=== PATIENT | female | born 1985 | race African-American/Black ===

== ENCOUNTER → 2016-03-25 | Outpatient (CLI) | payer MEDICARE, OTHER ==
[2016-03-25 10:13] LABS: Basophils % (A) 0 %; CHCM 31.4; Eosinophils % (A) 1 %; HCT 40.4 % (34.0-46.0); HGB 12.3 gm/dL (11.4-16.0); Hypochromasia Slight; Luc # (Auto) 0.07; Luc % (Auto) 1; Lymphocytes # (A) 1.5 k/uL (1.0-4.8); Lymphocytes % (A) 24 %; MCH 28.4 pg (25.0-35.0); MCHC 30.5 g/dL (31.0-37.0); MCV 93.1 fL (80.0-100.0); Mean Platelet Volume 7.5; Monocytes # (A) 0.3 k/uL (0-1.0); Monocytes % (A) 4 %; Neutrophils # (A) 4.5 k/uL (1.3-7.7); Neutrophils % (A) 70 %; RBC 4.34 m/uL (3.80-5.40); RDW 14.8 % (11.5-15.5); WBC 6.4 k/uL (3.8-10.6); WBC (Perox) 6.31
[2016-03-25 10:41] LABS: ALT 37 U/L (9-52); AST 26 U/L (14-36); Alkaline Phosphatase 74 U/L (38-126); Anion Gap 13 mmol/L; Blood Urea Nitrogen 5 mg/dL (7-17); Calcium 9.4 mg/dL (8.4-10.2); Carbon Dioxide 24 mmol/L (22-30); Chloride 104 mmol/L (98-107); Cholesterol 149 mg/dL (<200); Glucose 89 mg/dL (74-99); HDL Cholesterol 96 mg/dL (40-60); Non-African American GFR(MDRD) >60 (>60 ml/min/1.73 sqM); Potassium 4.3 mmol/L (3.5-5.1); Sodium 141 mmol/L (137-145); Total Bilirubin 0.4 mg/dL (0.2-1.3); Total Protein 7.5 g/dL (6.3-8.2); Triglycerides 80 mg/dL (<150)
[2016-03-25 12:20] LABS: Hemoglobin A1C 5.4 % (4.2-6.1)
== END | disposition home or self-care (01) ==
LOC: LABWHC1 09:29 → EEVIPCON 09:29
PROVIDERS: ATTEND Family Medicine
DX: F31.2 Bipolar disorder, current episode manic severe with psychotic features (principal)
CPT/HCPCS: 36415; 80053; 80061; 83036; 84439; 84443; 85025

== ENCOUNTER 2016-04-01 07:04 | Emergency (ER) | payer MEDICARE, OTHER ==
[2016-04-01 07:14] VITALS: BP 132/88; PULSE 70; RESP 18; TEMP 97.6
--- NOTE | 2016-04-01 08:00 | ED ---
General Adult HPI - General Chief complaint: Back Pain/Injury Stated complaint: Back Pain Time Seen by Provider: 04/01/16 07:10 Source: patient, RN notes reviewed Mode of arrival: ambulatory Limitations: no limitations - History of Present Illness Initial comments: This is a 30-year-old female who presents to the emergency department complaining of lower back pain. Patient denies any trauma to the back she says she twisted and strained his little and she was like a muscle relaxant. Patient denies any numbness weakness. Patient denies any direct blow or trauma to the area. Patient denies any abdominal pain. Patient denies any recent fever or chills. Patient denies any difficulty urinating or having urinary incontinence. Patient denies any other problems at this time. Patient has full range of motion of her back just is a little tight she states. - Related Data Previous Rx's Medication Instructions Recorded Cyclobenzaprine [Flexeril] 10 mg PO TID #5 tab 04/01/16 Ibuprofen [Motrin] 600 mg PO Q6HR PRN #20 tab 04/01/16 Allergies Allergy/AdvReac Type Severity Reaction Status Date / Time naproxen [From Naprosyn] Allergy Rash/Hives Verified 04/01/16 07:41 Review of Systems ROS Statement: Those systems with pertinent positive or pertinent negative responses have been documented in the HPI. ROS Other: All systems not noted in ROS Statement are negative. Past Medical History Past Medical History: No Reported History Additional Past Medical History / Comment(s): chronic back pain History of Any Multi-Drug Resistant Organisms: None Reported Past Surgical History: Section Past Psychological History: No Psychological Hx Reported Smoking Status: Current every day smoker Past Alcohol Use History: None Reported Past Drug Use History: None Reported General Exam - General Exam Comments Initial Comments: GENERAL Patient is well-developed and well-nourished. Patient is in mild distress. EYES Patient's pupils are equal and round. Extraocular motion is intact SKIN Unremarkable NEURO The patient is alert and oriented 3 PYSCH Patient has normal interpersonal interactions. MUSCULOSKELETAL The paraspinous muscles in the lower back are slightly tender to palpation. Patient has full range motion back pain patient has no numbness or weakness. Limitations: no limitations Course Vital Signs 04/01/16 07:10 Temperature 97.6 F Pulse Rate 70 Respiratory 18 Rate Blood Pressure 132/88 O2 Sat by Pulse 100 Oximetry Disposition Clinical Impression: Strain of lumbar region Disposition: HOME SELF-CARE Condition: Good Instructions: Low Back Strain (ED) Prescriptions: Cyclobenzaprine [Flexeril] 10 mg PO TID #5 tab Ibuprofen [Motrin] 600 mg PO Q6HR PRN #20 tab PRN Reason: For pain Referrals: Arnol Jean MD [Primary Care Provider] - 1-2 days Time of Disposition: 08:00
== END 2016-04-01 08:15 | disposition home or self-care (01) ==
LOC: EC 07:04
DX: S39.012A Strain of muscle, fascia and tendon of lower back, initial encounter (principal); F17.200 Nicotine dependence, unspecified, uncomplicated; Z88.8 Allergy status to other drugs, medicaments and biological substances; X58.XXXA Exposure to other specified factors, initial encounter
CPT/HCPCS: 99283

== ENCOUNTER 2016-08-06 10:50 | Emergency (ER) | payer MEDICARE, OTHER ==
--- NOTE | 2016-08-06 12:05 | ED ---
General Adult HPI - General Chief complaint: Skin/Abscess/Foreign Body Stated complaint: rash Time Seen by Provider: 08/06/16 11:39 Source: patient, RN notes reviewed, old records reviewed Mode of arrival: ambulatory Limitations: no limitations - History of Present Illness Initial comments: Is a 22-year-old female the ER for evaluation of rash. Patient has rash in the right side of her neck. Patient states at times it itches at times can be type of burning pain. Patient has no modifying factors for treatment, has not had any lotions, etc. any medications. Patient has no sick contacts no fevers no other complaints. No rash noted anywhere else. Rash is just on right side of neck down into shoulder area. Patient denies any systemic symptoms such as fever weakness nausea vomiting or malaise - Related Data Home Medications Medication Instructions Recorded Confirmed No Known Home Medications [No 08/06/16 08/06/16 Known Home Medications] Allergies Allergy/AdvReac Type Severity Reaction Status Date / Time naproxen [From Naprosyn] Allergy Rash/Hives Verified 08/06/16 11:11 Review of Systems ROS Statement: Those systems with pertinent positive or pertinent negative responses have been documented in the HPI. ROS Other: All systems not noted in ROS Statement are negative. Past Medical History Past Medical History: No Reported History Additional Past Medical History / Comment(s): chronic back pain History of Any Multi-Drug Resistant Organisms: None Reported Past Surgical History: Section Past Psychological History: No Psychological Hx Reported Smoking Status: Current every day smoker Past Alcohol Use History: None Reported Past Drug Use History: None Reported General Exam - General Exam Comments Initial Comments: Dermatitis right lateral neck Limitations: no limitations General appearance: alert, in no apparent distress Head exam: Present: atraumatic, normocephalic, normal inspection Eye exam: Present: normal appearance, PERRL, EOMI. Absent: scleral icterus, conjunctival injection, periorbital swelling ENT exam: Present: normal exam, mucous membranes moist Neck exam: Present: normal inspection. Absent: tenderness, meningismus, lymphadenopathy Respiratory exam: Present: normal lung sounds bilaterally. Absent: respiratory distress, wheezes, rales, rhonchi, stridor Cardiovascular Exam: Present: regular rate, normal rhythm, normal heart sounds. Absent: systolic murmur, diastolic murmur, rubs, gallop, clicks GI/Abdominal exam: Present: soft, normal bowel sounds. Absent: distended, tenderness, guarding, rebound, rigid Extremities exam: Present: normal inspection, full ROM, normal capillary refill. Absent: tenderness, pedal edema, joint swelling, calf tenderness Back exam: Present: normal inspection Neurological exam: Present: alert, oriented X3, CN II-XII intact Psychiatric exam: Present: normal affect, normal mood Skin exam: Present: warm, dry, intact, normal color. Absent: rash Course Vital Signs 08/06/16 11:08 Temperature 99.2 F Pulse Rate 105 H Respiratory 18 Rate Blood Pressure 144/97 O2 Sat by Pulse 96 Oximetry - Reevaluation(s) Reevaluation #1: 08/06/16 12:03 Patient given steroid cream here in the emergency room, Medical Decision Making - Medical Decision Making 22 female ER for evaluation of right neck dermatitis, positive rash right side of neck, patient given steroids, steroid cream for dermatitis, can be discharged home Disposition Clinical Impression: Dermatitis Narrative: Right Neck Dermatitis Disposition: HOME SELF-CARE Condition: Good Instructions: Contact Dermatitis (ED) Referrals: Arnol Jean MD [Primary Care Provider] - 1-2 days
[2016-08-06] MEDS ORDERED: TRIAMCINOLONE ACET 0.1% OINTMENT 15 GM TUBE TOPICAL SCH (12:15)
[2016-08-06 12:23] VITALS: BP 127/93; PULSE 83; RESP 16; TEMP 98.4
== END 2016-08-06 12:33 | disposition home or self-care (01) ==
LOC: EC 10:50
DX: L30.9 Dermatitis, unspecified (principal); F17.200 Nicotine dependence, unspecified, uncomplicated; Z88.6 Allergy status to analgesic agent
CPT/HCPCS: 99283

== ENCOUNTER 2017-05-26 17:06 | Inpatient (IN) | payer MEDICARE, MEDICAID ==
--- NOTE | 2017-05-26 17:28 | ED ---
Psych HPI - General Stated Complaint: Mental Health Time Seen by Provider: 05/26/17 17:06 Source: patient, police, RN notes reviewed - History of Present Illness Initial Comments: This a 31-year-old female with a history of bipolar disorder who was brought in by police for aggressive manic behavior. Patient was noted by personnel have the smell of alcohol conjoiners on her breath the patient is thus far uncooperative with answering questions so the question of drug use or any other problems and is not easily elucidated. There is no evidence of trauma per personnel. No nausea vomiting reported. MD Complaint: altered mental status - Related Data Home Medications Medication Instructions Recorded Confirmed ARIPiprazole [Abilify] 15 mg PO HS 02/03/17 05/26/17 Allergies Allergy/AdvReac Type Severity Reaction Status Date / Time naproxen [From Naprosyn] Allergy Rash/Hives Verified 05/26/17 17:36 Review of Systems ROS Statement: Those systems with pertinent positive or pertinent negative responses have been documented in the HPI. ROS Other: All systems not noted in ROS Statement are negative. Limitations: ROS unobtainable due to patients medical condition Past Medical History Past Medical History: No Reported History Additional Past Medical History / Comment(s): chronic back pain History of Any Multi-Drug Resistant Organisms: None Reported Past Surgical History: Section Past Psychological History: No Psychological Hx Reported Smoking Status: Current every day smoker Past Alcohol Use History: None Reported Past Drug Use History: None Reported General Exam - General Exam Comments Initial Comments: Is a well-developed well-nourished awake alert agitated female with a smell of alcohol conjoiners on her breath General appearance: alert, anxious Head exam: Present: atraumatic, normocephalic, normal inspection Eye exam: Present: normal appearance, PERRL, EOMI. Absent: scleral icterus, conjunctival injection, periorbital swelling ENT exam: Present: normal exam, mucous membranes moist Neck exam: Present: normal inspection. Absent: tenderness, meningismus, lymphadenopathy Respiratory exam: Present: normal lung sounds bilaterally. Absent: respiratory distress, wheezes, rales, rhonchi, stridor Cardiovascular Exam: Present: regular rate, normal rhythm, normal heart sounds. Absent: systolic murmur, diastolic murmur, rubs, gallop, clicks GI/Abdominal exam: Present: soft, normal bowel sounds. Absent: distended, tenderness, guarding, rebound, rigid Extremities exam: Present: normal inspection, full ROM, normal capillary refill. Absent: tenderness, pedal edema, joint swelling, calf tenderness Back exam: Present: normal inspection Neurological exam: Present: alert, CN II-XII intact, normal gait (Patient was noted to walk-in with police without any difficulty.). Absent: motor sensory deficit Psychiatric exam: Present: anxious, manic Skin exam: Present: warm, dry, intact, normal color. Absent: rash Course Vital Signs 05/26/17 17:18 Temperature 99.0 F Pulse Rate 117 H Respiratory 16 Rate Blood Pressure 162/109 O2 Sat by Pulse 98 Oximetry - Reevaluation(s) Reevaluation #1: 05/26/17 17:26 The patient did require a spit mask and restraints for the protection of her and staff members Reevaluation #2: 05/26/17 20:45 I did review the petition and did fill out a clinical certification. Procedures - Restraint - Face to Face Restraint Occurrence 1 Patient's Immediate Situation: Endangers self safety, Endangers others' safety, Endangers staff safety Patient's Reaction to the Intervention: Uncooperative, Belligerent, Aggressive, Combative Patient's Medical & Behavioral Condition: Awake, Alert, Agitated Need to Continue or Terminate Restraint or Seclusion: Continue Face to Face Eval of Restraint Time: 17:27 Medical Decision Making - Medical Decision Making The patient was evaluated by psychiatric service and will be admitted for inpatient treatment of depression and agitation personality disorder. She did require intramuscular medication for sedation. - Lab Data Result diagrams: 05/26/17 17:27 Lab Results 05/26/17 05/26/17 05/26/17 Range/Units 17:21 17:27 17:27 WBC (3.8-10.6) k/uL RBC (3.80-5.40) m/uL Hgb (11.4-16.0) gm/dL Hct (34.0-46.0) % MCV (80.0-100.0) fL MCH (25.0-35.0) pg MCHC (31.0-37.0) g/dL RDW (11.5-15.5) % Plt Count (150-450) k/uL Neutrophils % % Lymphocytes % % Monocytes % % Eosinophils % % Basophils % % Neutrophils # (1.3-7.7) k/uL Lymphocytes # (1.0-4.8) k/uL Monocytes # (0-1.0) k/uL Eosinophils # (0-0.7) k/uL Basophils # (0-0.2) k/uL POC Glucose (mg/dL) 140 H (75-99) mg/dL POC Glu Winding Rack Operator ID Ewa Murphy Magnesium 1.7 (1.6-2.3) mg/dL Total Creatine Kinase 528 H (30-135) U/L CK-MB (CK-2) 0.5 (0.0-2.4) ng/mL CK-MB (CK-2) Rel Index 0.1 Lipase 115 (23-300) U/L Urine HCG, Qual (Not Detectd) Salicylates <1.0 mg/dL Urine Opiates Screen (NotDetected) Ur Oxycodone Screen (NotDetected) Urine Methadone Screen (NotDetected) Ur Propoxyphene Screen (NotDetected) Acetaminophen <10.0 ug/mL Ur Barbiturates Screen (NotDetected) U Tricyclic Antidepress (NotDetected) Ur Phencyclidine Scrn (NotDetected) Ur Amphetamines Screen (NotDetected) U Methamphetamines Scrn (NotDetected) U Benzodiazepines Scrn (NotDetected) Urine Cocaine Screen (NotDetected) U Marijuana (THC) Screen (NotDetected) Serum Alcohol 52 mg/dL 05/26/17 05/26/17 05/26/17 Range/Units 17:27 17:27 17:35 WBC 10.4 (3.8-10.6) k/uL RBC 4.40 (3.80-5.40) m/uL Hgb 12.4 (11.4-16.0) gm/dL Hct 37.9 (34.0-46.0) % MCV 86.2 (80.0-100.0) fL MCH 28.2 (25.0-35.0) pg MCHC 32.7 (31.0-37.0) g/dL RDW 15.3 (11.5-15.5) % Plt Count 563 H (150-450) k/uL Neutrophils % 67 % Lymphocytes % 26 % Monocytes % 4 % Eosinophils % 1 % Basophils % 0 % Neutrophils # 6.9 (1.3-7.7) k/uL Lymphocytes # 2.6 (1.0-4.8) k/uL Monocytes # 0.4 (0-1.0) k/uL Eosinophils # 0.1 (0-0.7) k/uL Basophils # 0.0 (0-0.2) k/uL POC Glucose (mg/dL) (75-99) mg/dL POC Glu Winding Rack Operator ID Magnesium (1.6-2.3) mg/dL Total Creatine Kinase (30-135) U/L CK-MB (CK-2) (0.0-2.4) ng/mL CK-MB (CK-2) Rel Index Lipase (23-300) U/L Urine HCG, Qual Not Detected (Not Detectd) Salicylates mg/dL Urine Opiates Screen Not Detected (NotDetected) Ur Oxycodone Screen Not Detected (NotDetected) Urine Methadone Screen Not Detected (NotDetected) Ur Propoxyphene Screen Not Detected (NotDetected) Acetaminophen ug/mL Ur Barbiturates Screen Not Detected (NotDetected) U Tricyclic Antidepress Not Detected (NotDetected) Ur Phencyclidine Scrn Not Detected (NotDetected) Ur Amphetamines Screen Not Detected (NotDetected) U Methamphetamines Scrn Not Detected (NotDetected) U Benzodiazepines Scrn Not Detected (NotDetected) Urine Cocaine Screen Not Detected (NotDetected) U Marijuana (THC) Screen Not Detected (NotDetected) Serum Alcohol mg/dL Disposition Clinical Impression: Depression, Personality disorder Disposition: TRANSFER TO PSYCH HOSP/UNIT Condition: Stable Referrals: Arnol Jean MD [Primary Care Provider] - 1-2 days
[2017-05-26 17:35] LABS: Basophils % (A) 0 %; Eosinophils # (A) 0.1 k/uL (0-0.7); Eosinophils % (A) 1 %; HCT 37.9 % (34.0-46.0); HGB 12.4 gm/dL (11.4-16.0); Lymphocytes # (A) 2.6 k/uL (1.0-4.8); Lymphocytes % (A) 26 %; MCH 28.2 pg (25.0-35.0); MCHC 32.7 g/dL (31.0-37.0); MCV 86.2 fL (80.0-100.0); Mean Platelet Volume 6.2; Monocytes # (A) 0.4 k/uL (0-1.0); Monocytes % (A) 4 %; Neutrophils # (A) 6.9 k/uL (1.3-7.7); Neutrophils % (A) 67 %; Platelet Count 563 k/uL (150-450); RDW 15.3 % (11.5-15.5); WBC 10.4 k/uL (3.8-10.6)
[2017-05-26 17:41] LABS: Glucose,Whole Blood 140 mg/dL (75-99)
[2017-05-26 17:45] LABS: Acetaminophen <10.0 ug/mL; Alcohol 52 mg/dL; Lipase 115 U/L (23-300); Magnesium 1.7 mg/dL (1.6-2.3); Salicylate <1.0 mg/dL
[2017-05-26 17:56] LABS: Amphetamine Screen,Urine Not Detected (NotDetected); Barbiturate Screen,Urine Not Detected (NotDetected); Benzodiazepines Screen,Urine Not Detected (NotDetected); Cocaine Screen,Urine Not Detected (NotDetected); Methadone Screen, Urine Not Detected (NotDetected); Opiate Screen,Urine Not Detected (NotDetected); Oxycodone Screen, Urine Not Detected (NotDetected); Phencyclidine Screen,Urine Not Detected (NotDetected); Tricyclic Antidepressant,Urine Not Detected (NotDetected); Urn Cannabinoid Scrn Not Detected (NotDetected)
[2017-05-26 18:11] LABS: Creatine Kinase MB 0.5 ng/mL (0.0-2.4)
[2017-05-26] MEDS ORDERED: LORazepam 2 MG/ML INJ IM STA ×2 (19:45→21:26)
[2017-05-26] MEDS ORDERED: ZIPRASIDONE 20 MG VIAL IM STA (19:46)
[2017-05-26] MEDS ORDERED: HALOPERIDOL LACTATE 5 MG/ML 1 ML VIAL IM STA (21:25)
[2017-05-26] MEDS ORDERED: diphenhydrAMINE 50 MG/ML 1 ML VIAL IM STA (21:26)
--- NOTE | 2017-05-26 21:28 | ED ---
Medical Decision Making - Lab Data Result diagrams: 05/26/17 17:27 Lab Results 05/26/17 05/26/17 05/26/17 Range/Units 17:21 17:27 17:27 WBC (3.8-10.6) k/uL RBC (3.80-5.40) m/uL Hgb (11.4-16.0) gm/dL Hct (34.0-46.0) % MCV (80.0-100.0) fL MCH (25.0-35.0) pg MCHC (31.0-37.0) g/dL RDW (11.5-15.5) % Plt Count (150-450) k/uL Neutrophils % % Lymphocytes % % Monocytes % % Eosinophils % % Basophils % % Neutrophils # (1.3-7.7) k/uL Lymphocytes # (1.0-4.8) k/uL Monocytes # (0-1.0) k/uL Eosinophils # (0-0.7) k/uL Basophils # (0-0.2) k/uL POC Glucose (mg/dL) 140 H (75-99) mg/dL POC Glu Driver Sales ID Ewa Murphy Magnesium 1.7 (1.6-2.3) mg/dL Total Creatine Kinase 528 H (30-135) U/L CK-MB (CK-2) 0.5 (0.0-2.4) ng/mL CK-MB (CK-2) Rel Index 0.1 Lipase 115 (23-300) U/L Urine HCG, Qual (Not Detectd) Salicylates <1.0 mg/dL Urine Opiates Screen (NotDetected) Ur Oxycodone Screen (NotDetected) Urine Methadone Screen (NotDetected) Ur Propoxyphene Screen (NotDetected) Acetaminophen <10.0 ug/mL Ur Barbiturates Screen (NotDetected) U Tricyclic Antidepress (NotDetected) Ur Phencyclidine Scrn (NotDetected) Ur Amphetamines Screen (NotDetected) U Methamphetamines Scrn (NotDetected) U Benzodiazepines Scrn (NotDetected) Urine Cocaine Screen (NotDetected) U Marijuana (THC) Screen (NotDetected) Serum Alcohol 52 mg/dL 05/26/17 05/26/17 05/26/17 Range/Units 17:27 17:27 17:35 WBC 10.4 (3.8-10.6) k/uL RBC 4.40 (3.80-5.40) m/uL Hgb 12.4 (11.4-16.0) gm/dL Hct 37.9 (34.0-46.0) % MCV 86.2 (80.0-100.0) fL MCH 28.2 (25.0-35.0) pg MCHC 32.7 (31.0-37.0) g/dL RDW 15.3 (11.5-15.5) % Plt Count 563 H (150-450) k/uL Neutrophils % 67 % Lymphocytes % 26 % Monocytes % 4 % Eosinophils % 1 % Basophils % 0 % Neutrophils # 6.9 (1.3-7.7) k/uL Lymphocytes # 2.6 (1.0-4.8) k/uL Monocytes # 0.4 (0-1.0) k/uL Eosinophils # 0.1 (0-0.7) k/uL Basophils # 0.0 (0-0.2) k/uL POC Glucose (mg/dL) (75-99) mg/dL POC Glu Driver Sales ID Magnesium (1.6-2.3) mg/dL Total Creatine Kinase (30-135) U/L CK-MB (CK-2) (0.0-2.4) ng/mL CK-MB (CK-2) Rel Index Lipase (23-300) U/L Urine HCG, Qual Not Detected (Not Detectd) Salicylates mg/dL Urine Opiates Screen Not Detected (NotDetected) Ur Oxycodone Screen Not Detected (NotDetected) Urine Methadone Screen Not Detected (NotDetected) Ur Propoxyphene Screen Not Detected (NotDetected) Acetaminophen ug/mL Ur Barbiturates Screen Not Detected (NotDetected) U Tricyclic Antidepress Not Detected (NotDetected) Ur Phencyclidine Scrn Not Detected (NotDetected) Ur Amphetamines Screen Not Detected (NotDetected) U Methamphetamines Scrn Not Detected (NotDetected) U Benzodiazepines Scrn Not Detected (NotDetected) Urine Cocaine Screen Not Detected (NotDetected) U Marijuana (THC) Screen Not Detected (NotDetected) Serum Alcohol mg/dL Disposition Clinical Impression: Depression, Personality disorder, Psychosis Disposition: TRANSFER TO PSYCH HOSP/UNIT Condition: Stable Referrals: Arnol Jean MD [Primary Care Provider] - 1-2 days
[2017-05-26] MEDS ORDERED: MAGNESIUM HYDROXIDE 2,400 MG/10 ML CUP PO PRN (23:07)
[2017-05-26] MEDS ORDERED: MAG HYDROX/AL HYDROX/SIMETH 30 ML CUP PO PRN (23:07)
[2017-05-26] MEDS ORDERED: LORazepam 2 MG/ML INJ IM PRN (23:13)
[2017-05-26] MEDS ORDERED: diphenhydrAMINE 50 MG/ML 1 ML VIAL IM PRN (23:14)
[2017-05-27 01:41] LABS: Appearance,Urine Clear (Clear); Bilirubin,Urine Negative (Negative); Blood,Urine Negative (Negative); Color,Urine Yellow; Glucose,Urine (UA) Negative (Negative); Hyaline Casts,Urine 22 /lpf (0-2); Ketones,Urine Negative (Negative); Leukocyte Esterase,Urine Negative (Negative); Mucus,Urine Moderate /hpf; Nitrite,Urine Negative (Negative); Protein,Urine 1+ (Negative); RBC,Urine 1 /hpf (0-5); Specific Gravity,Urine 1.019 (1.001-1.035); Squamous Epithelial Cell,Urine 2 /hpf (0-4); Urobilinogen,Urine <2.0 mg/dL (<2.0); WBC,Urine 2 /hpf (0-5)
[2017-05-27 09:42] LABS: Basophils % (A) 0 %; Eosinophils # (A) 0.1 k/uL (0-0.7); Eosinophils % (A) 1 %; HCT 38.7 % (34.0-46.0); HGB 12.6 gm/dL (11.4-16.0); Lymphocytes # (A) 1.9 k/uL (1.0-4.8); Lymphocytes % (A) 23 %; MCH 28.3 pg (25.0-35.0); MCHC 32.6 g/dL (31.0-37.0); MCV 86.8 fL (80.0-100.0); Mean Platelet Volume 6.4; Monocytes # (A) 0.3 k/uL (0-1.0); Monocytes % (A) 3 %; Neutrophils # (A) 5.9 k/uL (1.3-7.7); Neutrophils % (A) 71 %; Platelet Count 554 k/uL (150-450); RBC 4.45 m/uL (3.80-5.40); RDW 15.4 % (11.5-15.5); WBC 8.4 k/uL (3.8-10.6)
[2017-05-27 10:05] LABS: ALT 32 U/L (9-52); AST 66 U/L (14-36); Albumin 4.4 g/dL (3.5-5.0); Alkaline Phosphatase 92 U/L (38-126); Anion Gap 13 mmol/L; Blood Urea Nitrogen 9 mg/dL (7-17); Calcium 9.7 mg/dL (8.4-10.2); Carbon Dioxide 25 mmol/L (22-30); Chloride 106 mmol/L (98-107); Cholesterol 188 mg/dL (<200); Glucose 106 mg/dL (74-99); Potassium 3.8 mmol/L (3.5-5.1); Sodium 144 mmol/L (137-145); Total Bilirubin 0.4 mg/dL (0.2-1.3); Total Protein 7.6 g/dL (6.3-8.2); Triglycerides 90 mg/dL (<150)
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
[2017-05-27 10:13] LABS: LDL Cholesterol,Calculated 54 mg/dL (0-99)
[2017-05-27 10:24] LABS: HDL Cholesterol 116 mg/dL (40-60)
[2017-05-27] MEDS ORDERED: HALOPERIDOL 5 MG TAB PO PRN (10:39)
[2017-05-27] MEDS: LORazepam 1 MG TAB PO PRN ×2 (10:56→17:31)
[2017-05-27] MEDS: ARIPiprazole 15 MG TAB PO SCH (10:57)
[2017-05-27] MEDS: ACETAMINOPHEN TAB 325 MG TAB PO PRN ×3 (14:30→21:04)
[2017-05-27 19:14] LABS: Hemoglobin A1C 5.5 % (4.0-6.0)
[2017-05-28] MEDS: LORazepam 1 MG TAB PO PRN ×3 (00:56→17:17)
[2017-05-28] MEDS: ACETAMINOPHEN TAB 325 MG TAB PO PRN ×3 (06:17→17:17)
[2017-05-28] MEDS: ARIPiprazole 15 MG TAB PO SCH ×2 (08:20→10:59)
--- NOTE | 2017-05-28 10:28 | P.PN ---
Progress Note - Text Interval history: The patient is found at the front loader residential driver she follows me to an interview room. She reports feeling frustrated she continually asks when her court date is. She continues to refuse Abilify and states she will not take it until she goes to court. She has not demonstrated any aggressive behavior requiring seclusion or restraint. She has been utilizing Ativan 2 calm her anxiety. She had difficulty sleeping last evening. She requests a medication for that. Staff recorded she only slept 3 hours. Appetite stable. Mental status exam: The patient is an overweight -Northern Irish female appearing her stated age. She is dressed in her own clothing. Eye contact is appropriate. She is verbose speech is pressured. She demonstrates tangential thinking. It is difficult to answer her questions without her interrupting she follows redirection but again becomes intrusive in conversation again. The patient continues to demonstrate poor insight into her symptoms. She is easily agitated and demonstrates that verbally. She demonstrated no physical aggressiveness during the session. She demonstrates no abnormal involuntary movements. Affect is labile. Plan: The patient continues to demonstrate symptoms of clinton and is likely she is experiencing symptoms of psychosis. We continue to offer the Abilify however she refuses it. She spontaneously states that she would take Seroquel for sleep so we will initiate a 50 mg dose and titrate as needed. At this point it is our plan to reinstitute the Abilify and possibly use the injectable Depo form. Vital signs reviewed.
[2017-05-28] MEDS: QUEtiapine 50 MG TAB PO SCH (20:18)
[2017-05-29] MEDS: LORazepam 1 MG TAB PO PRN ×4 (03:05→23:37)
[2017-05-29] MEDS: ACETAMINOPHEN TAB 325 MG TAB PO PRN ×5 (03:05→21:17)
[2017-05-29] MEDS: ARIPiprazole 15 MG TAB PO SCH (08:04)
--- NOTE | 2017-05-29 11:32 | P.PN ---
Progress Note - Text Interval history: The patient is found in her room she follows me to an interview room. She participated in a deferral conference with her commercial manager and decided she wouldn't participate in a full court hearing. The patient states that she has now started complying with medication and nursing confirms. The patient would like to be discharged Thursday after court. Staff reported that she slept 5 hours last evening. Appetite stable. Mental status exam: The patient is an alert -Haitian female appearing her stated age. She continues to demonstrate symptoms of clinton. She is verbose thought process is circumstantial and tangential. She has difficulty receiving verbal input and registering that information. She does continue to perseverate on topics. Concentration is impaired. She is reporting no suicidal or homicidal thoughts. She is endorsing no auditory or visual hallucinations. She indicates she feels safe. She is oriented to person place and date. She demonstrates no verbal or physical aggressiveness however she demonstrates increased psychomotor activity. She demonstrates no abnormal involuntary movements. Insight and judgment are impaired. Plan: The patient is now complying with her psychotropic medication. We will continue to monitor for efficacy. She continues to demonstrate symptoms of clinton and she requires continued hospitalization. We will monitor her for safety and encourage her participation in the milieu. Vital signs reviewed.
[2017-05-29] MEDS: QUEtiapine 50 MG TAB PO SCH (20:20)
[2017-05-30] MEDS: ACETAMINOPHEN TAB 325 MG TAB PO PRN ×3 (04:35→16:54)
[2017-05-30] MEDS: ARIPiprazole 15 MG TAB PO SCH (08:05)
[2017-05-30] MEDS: LORazepam 1 MG TAB PO PRN ×3 (08:05→21:42)
--- NOTE | 2017-05-30 10:43 | P.PN ---
Progress Note - Text Interval history: The patient is found in the hallway she follows me to an interview room. She has several questions regarding her court hearing on Thursday. She states she slept last night is recorded she slept 5 hours. Appetite stable. We discussed the Abilify and in particular the option of raising the dose which she is not agreeable to. She has been complying with the 15 mg dose however. She expresses some concern as to where she will reside upon discharge. We spent some time clarifying the purpose of the court hearing on Thursday. Mental status exam: The patient is an overweight -Czech female dressed in her own clothing. Eye contact is appropriate speech is fluent she is verbose she is mildly pressured. She demonstrates circumstantial thinking she demonstrates no tangential thinking or flight of ideas today. She maintains a pleasant demeanor and demonstrates no verbal or physical aggressiveness. No abnormal involuntary movements observed. Insight and judgment limited but slowly improving she is reporting no auditory or visual hallucinations or any specific delusions. Plan: The patient will continue on her current medication we will consider titrating the dose further. Vital signs reviewed. She has a court hearing scheduled for Thursday.
[2017-05-30] MEDS: QUEtiapine 50 MG TAB PO SCH (20:22)
[2017-05-31] MEDS: ACETAMINOPHEN TAB 325 MG TAB PO PRN (02:29)
[2017-05-31] MEDS: LORazepam 1 MG TAB PO PRN ×3 (02:29→23:06)
[2017-05-31] MEDS: ARIPiprazole 15 MG TAB PO SCH (07:59)
--- NOTE | 2017-05-31 12:55 | P.PN ---
Progress Note - Text Interval history: The patient is found at the front as she follows me to an interview room. She reports that she feels she is improving she is looking forward to being discharged. We discussed utilizing the Abilify maintena injection. At first she is quite resistant but states that she will give it more consideration. She had significant difficulty sleeping last night but she did sleep throughout the morning decompensate. Appetite is stable. She has not been demonstrating any agitated or aggressive behavior. Mental status exam: The patient is an overweight -Lebanese female appearing her stated age. She is dressed in her own clothing. Eye contact is appropriate speech is fluent spontaneous nonpressured. She reports having no suicidal or homicidal thoughts. She is endorsing no auditory or visual hallucinations. She is endorsing no specific delusions. Thought process is improving. When we zita attention to the fact that she will get off topic she demonstrated some ability to control that better for the remainder part of the session. Insight and judgment slowly improving. Plan: The patient will continue on her current medication. If she is amenable we will utilize the Abilify maintena injection area and she does have court scheduled tomorrow afternoon. She has demonstrated improvement of some of her symptoms. We will discuss discharge planning during treatment team meeting tomorrow.
[2017-05-31] MEDS: QUEtiapine 50 MG TAB PO SCH (21:48)
[2017-06-01] MEDS: LORazepam 2 MG/ML INJ IM PRN (04:30)
[2017-06-01] MEDS: HALOPERIDOL LACTATE 5 MG/ML 1 ML VIAL IM PRN (04:31)
[2017-06-01] MEDS: ARIPiprazole 15 MG TAB PO SCH (07:54)
[2017-06-01] MEDS: LORazepam 1 MG TAB PO PRN ×2 (10:38→20:40)
--- NOTE | 2017-06-01 11:21 | P.PN ---
Progress Note - Text Interval history: The patient is found the desk she follows me to an interview room. Staff reported the patient received an injection of Geodon very early this morning due to agitated behavior. She was verbally confrontational with peers. Nursing and social work both discussed the patient's verbal agitation throughout the late afternoon and evening. The patient is aware of this but minimized the extent. She continues to be focused on a discharge date. We discussed titrating the Abilify further and she is agreeable she is additionally agreeable to having a start the Abilify maintena. Mental status exam: The patient is an overweight Afro-[place]otswanan female appearing her stated age. She is dressed in her own clothing. Eye contact is appropriate speech is fluent spontaneous nonpressured. She reports her mood is fine. Affect is appropriate. She demonstrates no verbal or physical aggressiveness during this session. She is endorsing no auditory or visual hallucinations or any specific delusions. Thought process is slowly improving but still disorganized at times. She is making more of an effort to listen when others are talking. Insight slowly improving judgment impaired based on behavior from earlier this morning. She is demonstrating no abnormal involuntary movements. She remains oriented to person place and date. Plan: The patient will continue on Abilify we will increase the total daily dose to 20 mg daily, I will order the Abilify maintena injection to start today 400 mg intramuscularly. We will monitor for safety and encourage her participation in the milieu. She has a court hearing regarding a treatment order this afternoon.
[2017-06-01] MEDS ORDERED: ARIPiprazole 5 MG TAB PO ONE (11:30)
[2017-06-01] MEDS ORDERED: ARIPiprazole 400 MG VIAL (NO CHARGE) IM ONE (12:00)
[2017-06-01] MEDS: QUEtiapine 50 MG TAB PO SCH (20:40)
[2017-06-02 06:50] VITALS: TEMP 97.9
[2017-06-02] MEDS: LORazepam 1 MG TAB PO PRN ×2 (07:51→23:11)
--- NOTE | 2017-06-02 08:59 | P.PN ---
Progress Note - Text Interval history: The patient is found in the hallway she follows me to an interview room. She recalls that we increased the Abilify to 20 mg and that she receive the Abilify maintena yesterday. She reviews a medication plan and is correct. She states that she has had no agitated behavior since our last meeting. Her sleep was recorded at 6 hours which is an improvement. She reports her mood is improved. She is hoping to be discharged soon. Mental status exam: The patient is alert she is dressed for own clothing hygiene grooming adequate. Eye contact is appropriate. Speech is spontaneous fluent. She is mildly verbose but easily directed. She was not intrusive in conversation. She is reporting no suicidal or homicidal ideation intent or plan. Thought process is slowly becoming more linear. She is demonstrating no verbal or physical aggressiveness in the session. She demonstrates no abnormal involuntary movements. Insight and judgment limited. Affect is appropriately expresses. She does have increased psychomotor activity and is stimulus bound. Plan: The patient will continue on her current medication. We will consider discharging her in the next 1-2 days if she demonstrates sufficient progress. She does have a guardian and we will need to determine where her placement will be after discharge. Vital signs reviewed. She is encouraged to continue controlling her behavior to the best of her ability
[2017-06-02] MEDS: LORazepam 2 MG/ML INJ IM PRN (15:52)
[2017-06-02] MEDS: HALOPERIDOL LACTATE 5 MG/ML 1 ML VIAL IM PRN (15:53)
[2017-06-02] MEDS: QUEtiapine 50 MG TAB PO SCH ×2 (22:41→23:06)
[2017-06-03] MEDS: LORazepam 1 MG TAB PO PRN ×2 (07:55→20:11)
[2017-06-03 09:47] VITALS: RESP 18
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
[2017-06-03] MEDS: QUEtiapine 50 MG TAB PO SCH (20:11)
[2017-06-03 20:12] VITALS: BP 140/92; PULSE 104
[2017-06-04] MEDS: LORazepam 1 MG TAB PO PRN (08:12)
--- NOTE | 2017-06-04 21:55 | PN ---
PROGRESS NOTE DATE OF SERVICE: 06/04/2017. INTERVAL HISTORY: The patient is found in the hallway. She follows me to an interview room. We had planned for a discharge for the patient yesterday, but the discharge was canceled due to lack of available placement to be arranged by her guardian. Staff informed me that the patient did handle this news without acute agitation. She is interested today in knowing when she can be discharged. She remains aware of her current medications and has been compliant with the oral dose of Abilify. Social Work arranged for us to have a meeting with her guardian and [facility]. MENTAL STATUS EXAMINATION: The patient is an overweight -[place] female appearing her stated age. Eye contact is appropriate. Speech is fluent, spontaneous, non-pressured. She reports her mood is good. She is future-oriented. She is looking forward to discharge. She denies any suicidal or homicidal ideation, intent or plan. She is endorsing no racing thoughts. Thought process is more organized. She is more directable during the session. She demonstrates no verbal or physical aggressiveness. She demonstrates no abnormal involuntary movements. She remains oriented to person, place and date. PLAN: The patient will be discharged today as planned yesterday. She will continue on Abilify 20 mg daily for a total of 10 days. She received the Abilify Maintena injection earlier this week. For full details, please refer to the discharge summary dictated yesterday. There is no imminent safety risk. She is appropriate for transition to outpatient care. She is instructed to return to the hospital with any acute safety concerns. The patient's guardian is agreeable to the discharge plan. She will follow up with [facility], also utilizing ACT team. MMODL / IJN: [id number] /
== END 2017-06-04 11:45 | disposition home or self-care (01) | DRG 885 ==
LOC: EEVIPCON 17:06 → EC 17:06 → 3MHU 21:56
PROVIDERS: ADMIT Psychiatry & Neurology Psychiatry; ATTEND Psychiatry & Neurology Psychiatry
DX: F31.2 Bipolar disorder, current episode manic severe with psychotic features (principal); F22 Delusional disorders; E66.3 Overweight; F17.200 Nicotine dependence, unspecified, uncomplicated; F41.9 Anxiety disorder, unspecified; F60.9 Personality disorder, unspecified; Z78.1 Physical restraint status; Z79.899 Other long term (current) drug therapy; Z88.8 Allergy status to other drugs, medicaments and biological substances
CPT/HCPCS: 36415; 80053; 80061; 80306; 80320; 81001; 81025; 82550; 82553; 83036; 83520; 83690; 83735; 84443; 85025; 96372; 99285

== ENCOUNTER 2017-06-25 06:54 | Emergency (ER) | payer MEDICARE, OTHER ==
--- NOTE | 2017-06-25 07:26 | ED ---
General Adult HPI - General Chief complaint: Back Pain/Injury Stated complaint: Back pain Time Seen by Provider: 06/25/17 07:01 Source: patient, RN notes reviewed, old records reviewed Mode of arrival: ambulatory Limitations: no limitations - History of Present Illness Initial comments: 31 -year-old female presenting with chief complaint of back pain. Patient describes it as bilateral lumbar pain. Denies any injury. Denies overuse. She has had chronic back pain and been seen in this emergency department many times. She states she took her friend's [employer]ands[employer] which worked well for her pain. She is not prescribed any narcotic pain medication at this time. She denies any bowel or bladder issues. No weakness in lower extremities. No sensory changes. No abdominal pain. No nausea or vomiting. Patient denies dysuria or hematuria. - Related Data Previous Rx's Medication Instructions Recorded traMADol HCL [Ultram] 50 mg PO Q12HR PRN 3 Days #12 tab 06/25/17 Allergies Allergy/AdvReac Type Severity Reaction Status Date / Time naproxen [From Naprosyn] Allergy Rash/Hives Verified 06/25/17 07:40 Review of Systems ROS Statement: Those systems with pertinent positive or pertinent negative responses have been documented in the HPI. ROS Other: All systems not noted in ROS Statement are negative. Past Medical History Past Medical History: No Reported History Additional Past Medical History / Comment(s): chronic back pain History of Any Multi-Drug Resistant Organisms: None Reported Past Surgical History: Section Past Psychological History: No Psychological Hx Reported Smoking Status: Current every day smoker General Exam Limitations: no limitations General appearance: alert, in no apparent distress Head exam: Present: atraumatic, normocephalic Eye exam: Present: normal appearance, PERRL ENT exam: Present: normal exam Neck exam: Present: normal inspection. Absent: tenderness, meningismus Respiratory exam: Present: normal lung sounds bilaterally. Absent: respiratory distress Cardiovascular Exam: Present: normal rhythm, tachycardia GI/Abdominal exam: Present: soft. Absent: distended, tenderness Extremities exam: Present: normal inspection, normal capillary refill. Absent: pedal edema, calf tenderness Back exam: Present: paraspinal tenderness (Lumbar paraspinal tenderness bilaterally.). Absent: vertebral tenderness Neurological exam: Present: alert, oriented X3, CN II-XII intact, normal gait, reflexes normal. Absent: motor sensory deficit Psychiatric exam: Present: normal affect, normal mood Skin exam: Present: warm, dry, intact. Absent: cyanosis, diaphoretic Course Vital Signs 06/25/17 06:59 Temperature 99.8 F H Pulse Rate 116 H Respiratory 20 Rate Blood Pressure 127/88 O2 Sat by Pulse 99 Oximetry Medical Decision Making - Medical Decision Making 31-year-old female presenting with atraumatic low back pain which is chronic in nature. No new injury. Patient has normal gait, normal strength in lower extremities. Urinalysis is negative for signs of significant infection, urine test is negative. Patient is requesting prescription for tramadol as this has worked in the past she would like to be discharged. - Lab Data Lab Results 06/25/17 06/25/17 Range/Units 07:20 07:20 Urine Color Yellow Urine Appearance Clear (Clear) Urine pH 5.5 (5.0-8.0) Ur Specific [place] 1.018 (1.001-1.035) Urine Protein Trace H (Negative) Urine Glucose (UA) Negative (Negative) Urine Ketones Negative (Negative) Urine Blood Trace H (Negative) Urine Nitrite Negative (Negative) Urine Bilirubin Negative (Negative) Urine Urobilinogen 2.0 (<2.0) mg/dL Ur Leukocyte Esterase Negative (Negative) Urine RBC 3 (0-5) /hpf Urine WBC 2 (0-5) /hpf Ur Squamous Epith Cells 4 (0-4) /hpf Urine Bacteria Rare H (None) /hpf Urine Mucus Moderate H (None) /hpf Urine HCG, Qual Not Detected (Not Detectd) Disposition Clinical Impression: Chronic back pain Disposition: HOME SELF-CARE Condition: Good Instructions: Chronic Back Pain (ED) Prescriptions: traMADol HCL [Ultram] 50 mg PO Q12HR PRN 3 Days #12 tab PRN Reason: Pain Is patient prescribed a controlled substance at d/c from ED?: No Referrals: Arnol Jean MD [Primary Care Provider] - 1-2 days Time of Disposition: 07:56
[2017-06-25 07:48] LABS: Appearance,Urine Clear (Clear); Bacteria,Urine Rare /hpf; Bilirubin,Urine Negative (Negative); Blood,Urine Trace (Negative); Color,Urine Yellow; Glucose,Urine (UA) Negative (Negative); Ketones,Urine Negative (Negative); Leukocyte Esterase,Urine Negative (Negative); Mucus,Urine Moderate /hpf; Nitrite,Urine Negative (Negative); PH, Urine 5.5 (5.0-8.0); Protein,Urine Trace (Negative); RBC,Urine 3 /hpf (0-5); Specific Gravity,Urine 1.018 (1.001-1.035); Squamous Epithelial Cell,Urine 4 /hpf (0-4); WBC,Urine 2 /hpf (0-5)
[2017-06-25 08:01] VITALS: BP 128/80; PULSE 90; RESP 18; TEMP 97.7
== END 2017-06-25 08:06 | disposition home or self-care (01) ==
LOC: EC 06:54
DX: G89.29 Other chronic pain (principal); M54.5 Low back pain; R00.0 Tachycardia, unspecified; F17.200 Nicotine dependence, unspecified, uncomplicated; Z88.6 Allergy status to analgesic agent
CPT/HCPCS: 81001; 81025; 99284

== ENCOUNTER 2017-07-09 16:03 | Emergency (ER) | payer MEDICARE, OTHER ==
[2017-07-09 16:19] VITALS: BP 120/78; PULSE 87; RESP 18; TEMP 98.9
--- NOTE | 2017-07-09 16:27 | ED ---
General Adult HPI - General Chief complaint: Upper Respiratory Infection Stated complaint: ENT Time Seen by Provider: 07/09/17 16:17 Source: patient, RN notes reviewed Mode of arrival: ambulatory Limitations: no limitations - History of Present Illness Initial comments: Patient for 31-year-old female presented to the emergency room today with chief complaint of cough congestion and increased rhinorrhea over the last 3 weeks. Patient sputum production. Patient also admits to chronic low back pain. States she fell down steps several years ago. States she was recently seen here in the emergency room given tramadol for this. She denies any other complaints or symptoms. Patient denies any recent fever, chills, shortness of breath, chest pain, abdominal pain, nausea or vomiting, numbness or tingling, dysuria or hematuria, constipation or diarrhea, headaches or visual changes, or any other complaints. - Related Data Previous Rx's Medication Instructions Recorded traMADol HCL [Ultram] 50 mg PO Q12HR PRN 3 Days #12 tab 06/25/17 Azithromycin [Zithromax Z-pack] 0 mg PO DIRECTED #6 tab 07/09/17 Fluticasone Propionate [Flonase 1 - 2 spray EA NOSTRIL DAILY 5 07/09/17 Allergy Relief] Days ml Allergies Allergy/AdvReac Type Severity Reaction Status Date / Time naproxen [From Naprosyn] Allergy Rash/Hives Verified 07/09/17 16:17 Review of Systems ROS Statement: Those systems with pertinent positive or pertinent negative responses have been documented in the HPI. ROS Other: All systems not noted in ROS Statement are negative. Past Medical History Past Medical History: No Reported History Additional Past Medical History / Comment(s): chronic back pain History of Any Multi-Drug Resistant Organisms: None Reported Past Surgical History: Section Past Psychological History: No Psychological Hx Reported Smoking Status: Current every day smoker Past Alcohol Use History: None Reported Past Drug Use History: None Reported General Exam - General Exam Comments Initial Comments: General: The patient is awake and alert, in no distress, and does not appear acutely ill. Eye: Pupils are equal, round and reactive to light, extra-ocular movements are intact. No nystagmus. There is normal conjunctiva bilaterally. No signs of icterus. Ears, nose, mouth and throat: There are moist mucous membranes and no oral lesions. Tender over the sinuses. Neck: The neck is supple, there is no tenderness or JVD. Cardiovascular: There is a regular rate and rhythm. No murmur, rub or gallop is appreciated. Respiratory: Lungs are clear to auscultation, respirations are non-labored, breath sounds are equal. No wheezes, stridor, rales, or rhonchi. Musculoskeletal: Normal ROM, no tenderness. Strength 5/5. Sensation intact. Pulses equal bilaterally 2+. Neurological: A&O x 3. CN II-XII intact, There are no obvious motor or sensory deficits. Coordination appears grossly intact. Speech is normal. Skin: Skin is warm and dry and no rashes or lesions are noted. Limitations: no limitations Course Vital Signs 07/09/17 16:14 Temperature 98.9 F Pulse Rate 87 Respiratory 18 Rate Blood Pressure 120/78 O2 Sat by Pulse 99 Oximetry Medical Decision Making - Medical Decision Making Patient will be treated for sinus infection as she is tender over her sinuses has had symptoms for 3+ weeks. Does admit to a purulent drainage. Patient will given azithromycin and also Flonase for her symptoms. Advised patient that we cannot give her anything for her low back pain as it is a chronic issue needs follow-up family doctor. Disposition Clinical Impression: Acute sinusitis Disposition: HOME SELF-CARE Condition: Good Instructions: Sinusitis (ED) Additional Instructions: Please use medication as discussed. Please follow-up with family doctor in the next 2 days of symptoms have not improved. Please return to emergency room if the symptoms increase or worsen or for any other concerns. Prescriptions: Azithromycin [Zithromax Z-pack] 0 mg PO DIRECTED #6 tab Fluticasone Propionate [Flonase Allergy Relief] 1 - 2 spray EA NOSTRIL DAILY 5 Days ml Is patient prescribed a controlled substance at d/c from ED?: No Referrals: Arnol Jean MD [Primary Care Provider] - 1-2 days Time of Disposition: 16:20
== END 2017-07-09 16:42 | disposition home or self-care (01) ==
LOC: EC 16:03
DX: J01.90 Acute sinusitis, unspecified (principal); M54.5 Low back pain; F17.200 Nicotine dependence, unspecified, uncomplicated; Z88.6 Allergy status to analgesic agent
CPT/HCPCS: 99283

== ENCOUNTER 2017-08-11 04:43 | Emergency (ER) | payer MEDICARE, OTHER ==
--- NOTE | 2017-08-11 05:09 | ED ---
General Adult HPI - General Chief complaint: Upper Respiratory Infection Stated complaint: congestion Time Seen by Provider: 08/11/17 05:00 Source: patient, RN notes reviewed, old records reviewed Mode of arrival: ambulatory Limitations: no limitations - History of Present Illness Initial comments: This is a 31-year-old female the ER for evaluation patient presents today for evaluation regards to survive type infection, cough congestion runny nose. No fevers. - Related Data Home Medications Medication Instructions Recorded Confirmed No Known Home Medications [No 08/11/17 08/11/17 Known Home Medications] Allergies Allergy/AdvReac Type Severity Reaction Status Date / Time naproxen [From Naprosyn] Allergy Rash/Hives Verified 08/11/17 04:54 Review of Systems ROS Statement: Those systems with pertinent positive or pertinent negative responses have been documented in the HPI. ROS Other: All systems not noted in ROS Statement are negative. Past Medical History Past Medical History: No Reported History Additional Past Medical History / Comment(s): chronic back pain History of Any Multi-Drug Resistant Organisms: None Reported Past Surgical History: Section Past Psychological History: No Psychological Hx Reported Smoking Status: Current every day smoker Past Alcohol Use History: None Reported Past Drug Use History: None Reported General Exam Limitations: no limitations General appearance: alert, in no apparent distress Head exam: Present: atraumatic, normocephalic, normal inspection Eye exam: Present: normal appearance, PERRL, EOMI. Absent: scleral icterus, conjunctival injection, periorbital swelling ENT exam: Present: normal exam, mucous membranes moist Neck exam: Present: normal inspection. Absent: tenderness, meningismus, lymphadenopathy Respiratory exam: Present: normal lung sounds bilaterally. Absent: respiratory distress, wheezes, rales, rhonchi, stridor Cardiovascular Exam: Present: regular rate, normal rhythm, normal heart sounds. Absent: systolic murmur, diastolic murmur, rubs, gallop, clicks GI/Abdominal exam: Present: soft, normal bowel sounds. Absent: distended, tenderness, guarding, rebound, rigid Extremities exam: Present: normal inspection, full ROM, normal capillary refill. Absent: tenderness, pedal edema, joint swelling, calf tenderness Back exam: Present: normal inspection Neurological exam: Present: alert, oriented X3, CN II-XII intact Psychiatric exam: Present: normal affect, normal mood Skin exam: Present: warm, dry, intact, normal color. Absent: rash Course Vital Signs 08/11/17 04:50 Temperature 98.6 F Pulse Rate 94 Respiratory 20 Rate Blood Pressure 110/78 O2 Sat by Pulse 100 Oximetry Medical Decision Making - Medical Decision Making 31 female the ER for evaluation positive Raynaud's cough and congestion upper respiratory infection, patient also concerned about urinary negative. Patient was placed on Flonase and ALLERGY pill. Patient can be discharged home - Lab Data Lab Results 08/11/17 08/11/17 Range/Units 05:00 05:00 Urine Color Yellow Urine Appearance Clear (Clear) Urine pH 5.5 (5.0-8.0) Ur Specific [place] 1.027 (1.001-1.035) Urine Protein Trace H (Negative) Urine Glucose (UA) Negative (Negative) Urine Ketones Trace H (Negative) Urine Blood Negative (Negative) Urine Nitrite Negative (Negative) Urine Bilirubin Negative (Negative) Urine Urobilinogen 3.0 (<2.0) mg/dL Ur Leukocyte Esterase Negative (Negative) Urine HCG, Qual Not Detected (Not Detectd) Disposition Clinical Impression: Headache, Psychosis, Sinusitis Disposition: HOME SELF-CARE Condition: Good Instructions: Sinusitis (ED) Is patient prescribed a controlled substance at d/c from ED?: No Referrals: Arnol Jean MD [Primary Care Provider] - 1-2 days
[2017-08-11 05:16] LABS: Appearance,Urine Clear (Clear); Bilirubin,Urine Negative (Negative); Blood,Urine Negative (Negative); Color,Urine Yellow; Glucose,Urine (UA) Negative (Negative); Ketones,Urine Trace (Negative); Leukocyte Esterase,Urine Negative (Negative); Nitrite,Urine Negative (Negative); PH, Urine 5.5 (5.0-8.0); Protein,Urine Trace (Negative); Specific Gravity,Urine 1.027 (1.001-1.035)
[2017-08-11] MEDS ORDERED: FLUTICASONE 50MCG/SPRAY NASAL 16GM EA NOSTRIL STA (05:41)
[2017-08-11] MEDS ORDERED: LORATADINE-PSEUDOEPH 5-120 MG 1 EACH TAB.ER.12H PO STA (05:41)
[2017-08-11] MEDS ORDERED: Acetaminophen-Codeine 300-30mg TAB PO STA (05:41)
[2017-08-11 06:03] VITALS: BP 126/75; PULSE 88; RESP 18; TEMP 97.7
== END 2017-08-11 06:02 | disposition home or self-care (01) ==
LOC: EC 04:43
DX: J32.9 Chronic sinusitis, unspecified (principal); F29 Unspecified psychosis not due to a substance or known physiological condition; F17.200 Nicotine dependence, unspecified, uncomplicated; Z88.6 Allergy status to analgesic agent
CPT/HCPCS: 81003; 81025; 87086; 99284

== ENCOUNTER 2017-08-18 04:45 | Emergency (ER) | payer MEDICARE, OTHER ==
[2017-08-18 04:51] VITALS: TEMP 98.3
--- NOTE | 2017-08-18 05:28 | ED ---
Female Urogenital HPI - General Chief complaint: ENT Stated complaint: Ear infection Time Seen by Provider: 08/18/17 04:56 Source: patient Mode of arrival: ambulatory Limitations: no limitations - History of Present Illness Initial comments: This patient is 31-year-old woman who presents with concern that she is having vaginal yeast infection. She complains of having thick whitish discharge going on for number of months, associated with some itching. Patient states that she had [facility] things to clear up but it has recurred. In addition she is having some right ear discomfort that is been going on for the past couple of days. MD Complaint: vaginal discharge -: month(s) Location: perineum Severity: mild Improves with: none Worsens with: none Last Menstrual Period: 07/17/17 Patient : No Associated Symptoms: vaginal discharge - Related Data Sexually active: Yes Previous Rx's Medication Instructions Recorded Cetirizine HCl [Zyrtec] 10 mg PO DAILY #30 tab 08/11/17 Allergies Allergy/AdvReac Type Severity Reaction Status Date / Time naproxen [From Naprosyn] Allergy Rash/Hives Verified 08/18/17 04:51 Review of Systems ROS Statement: Those systems with pertinent positive or pertinent negative responses have been documented in the HPI. ROS Other: All systems not noted in ROS Statement are negative. Constitutional: Denies: fever, chills Eyes: Denies: eye discharge ENT: Reports: ear pain. Denies: hearing loss, congestion Respiratory: Denies: cough, dyspnea Cardiovascular: Denies: chest pain Gastrointestinal: Denies: abdominal pain Genitourinary: Reports: discharge. Denies: urgency, dysuria, frequency, abnormal menses, dyspareunia Musculoskeletal: Denies: back pain Skin: Denies: rash Neurological: Denies: headache Past Medical History Past Medical History: No Reported History Additional Past Medical History / Comment(s): chronic back pain History of Any Multi-Drug Resistant Organisms: None Reported Past Surgical History: Section Past Psychological History: No Psychological Hx Reported Smoking Status: Current every day smoker Past Alcohol Use History: None Reported Past Drug Use History: None Reported General Exam Limitations: no limitations General appearance: alert, in no apparent distress Head exam: Present: atraumatic, normocephalic Eye exam: Present: normal appearance. Absent: scleral icterus, conjunctival injection ENT exam: Present: normal oropharynx, TM's normal bilaterally, other (There is mild to moderate amount of edema to the external auditory canal and tenderness to the tragus. No mastoid tenderness or findings there.) GI/Abdominal exam: Present: soft. Absent: distended, tenderness, guarding, rebound, rigid, mass External exam: Present: other (Thick whitish vaginal discharge.) Speculum exam: Present: vaginal discharge. Absent: cervical discharge, vaginal bleeding, foreign body, tissue, laceration By manual exam: Present: normal by manual exam, other (NELSON Rodrigues present for exam ). Absent: cervical motion tenderness, adnexal tenderness, adnexal mass, uterine enlargement, uterine tenderness Course Vital Signs 08/18/17 08/18/17 04:48 06:47 Temperature 98.3 F Pulse Rate 99 54 L Respiratory 20 19 Rate Blood Pressure 142/108 125/78 O2 Sat by Pulse 100 95 Oximetry Medical Decision Making - Lab Data Lab Results 08/18/17 Range/Units 05:24 Urine HCG, Qual Not Detected (Not Detectd) Disposition Clinical Impression: Candidiasis of vagina, Otitis externa Disposition: HOME SELF-CARE Condition: Fair Instructions: Otitis Externa (ED), Vulvovaginal Candidiasis (ED) Is patient prescribed a controlled substance at d/c from ED?: No Referrals: Arnol Jean MD [Primary Care Provider] - 1-2 days
[2017-08-18] MEDS ORDERED: FLUCONAZOLE 150 MG TAB PO STA (05:37)
[2017-08-18] MEDS ORDERED: NEOMYCIN-POLYMYXIN-HC (3.5-10,000-10 MG) OTIC DROPS 10 ML BTL RIGHT EAR STA (06:11)
[2017-08-18 06:49] VITALS: BP 125/78; PULSE 54; RESP 19
== END 2017-08-18 06:47 | disposition home or self-care (01) ==
LOC: EC 04:45
DX: B37.3 Candidiasis of vulva and vagina (principal); H60.91 Unspecified otitis externa, right ear; F17.200 Nicotine dependence, unspecified, uncomplicated; Z88.6 Allergy status to analgesic agent
CPT/HCPCS: 81025; 87491; 87591; 99283

== ENCOUNTER 2017-09-30 04:50 | Emergency (ER) | payer MEDICARE, OTHER ==
[2017-09-30 04:56] VITALS: TEMP 98.6
[2017-09-30] MEDS ORDERED: NEOMYCIN-POLYMYXIN-HC (3.5-10,000-10 MG) OTIC DROPS 10 ML BTL RIGHT EAR STA (06:39)
--- NOTE | 2017-09-30 06:41 | ED ---
ENT HPI - General Chief complaint: ENT Stated complaint: ear ache Time Seen by Provider: 09/30/17 05:13 Source: patient Mode of arrival: ambulatory Limitations: no limitations - History of Present Illness Initial comments: Patient is a 31-year-old woman who presents with complaint of right ear pain. She states that she had clean her ears about 4 days ago and then from the following day and she started having some pain that has progressively gotten worse. She denies any change in hearing. She has not had any drainage from the ear. No fever or chills. No upper respiratory symptoms. On the review of systems, the patient states she is having some thick whitish vaginal discharge and vulvar itching, that she states is identical to previous yeast infection and she requests treatment for that. MD complaint: ear pain -: days(s) Location: R ear Severity: moderate Quality: aching Consistency: constant Improves with: none - Related Data Previous Rx's Medication Instructions Recorded Cetirizine HCl [Zyrtec] 10 mg PO DAILY #30 tab 08/11/17 Fluconazole [Diflucan] 150 mg PO ONCE #1 tab 09/30/17 Allergies Allergy/AdvReac Type Severity Reaction Status Date / Time naproxen [From Naprosyn] Allergy Rash/Hives Verified 09/30/17 04:56 Review of Systems ROS Statement: Those systems with pertinent positive or pertinent negative responses have been documented in the HPI. ROS Other: All systems not noted in ROS Statement are negative. Constitutional: Denies: fever, chills ENT: Reports: ear pain. Denies: hearing loss, congestion Respiratory: Denies: cough, dyspnea Gastrointestinal: Denies: abdominal pain Genitourinary: Reports: discharge. Denies: dysuria, frequency, hematuria, abnormal menses, dyspareunia Musculoskeletal: Denies: back pain Skin: Denies: rash Past Medical History Past Medical History: No Reported History Additional Past Medical History / Comment(s): chronic back pain History of Any Multi-Drug Resistant Organisms: None Reported Past Surgical History: Section Past Psychological History: No Psychological Hx Reported Smoking Status: Current every day smoker Past Alcohol Use History: None Reported Past Drug Use History: None Reported General Exam Limitations: no limitations General appearance: alert, in no apparent distress Head exam: Present: atraumatic, normocephalic Eye exam: Present: normal appearance ENT exam: Present: normal oropharynx, mucous membranes moist, TM's normal bilaterally. Absent: normal external ear exam (Tenderness at the right tragus and mild erythema and edema of the external auditory canal) Neck exam: Present: normal inspection, full ROM. Absent: tenderness, meningismus, lymphadenopathy GI/Abdominal exam: Present: soft. Absent: distended, tenderness, guarding, rebound Skin exam: Present: warm, dry, intact, normal color. Absent: rash Course Vital Signs 09/30/17 09/30/17 04:54 07:14 Temperature 98.6 F 98.6 F Pulse Rate 91 75 Respiratory 18 16 Rate Blood Pressure 119/85 139/60 O2 Sat by Pulse 100 100 Oximetry Medical Decision Making - Medical Decision Making The patient declines gynecologic exam here. She states the symptoms are identical to previous yeast infection. I discussed the risk of missing a sexual transmitted infection, and the patient states that if she does not have response to treatment she will return for gynecologic exam or follow with the [facility] surgeon/general dermatologist. Disposition Clinical Impression: Otitis externa, Candidiasis of vagina Disposition: HOME SELF-CARE Condition: Good Instructions: Otitis Externa (ED), Vulvovaginal Candidiasis (ED) Additional Instructions: As we discussed, you must follow-up with your physician to have gynecologic exam. Return immediately if there is worsening, as we discussed. Prescriptions: Fluconazole [Diflucan] 150 mg PO ONCE #1 tab Referrals: Arnol Jean MD [Primary Care Provider] - 1-2 days
[2017-09-30 07:15] VITALS: BP 139/60; PULSE 75; RESP 16
== END 2017-09-30 07:15 | disposition home or self-care (01) ==
LOC: EC 04:50
DX: H60.91 Unspecified otitis externa, right ear (principal); B37.3 Candidiasis of vulva and vagina; F17.200 Nicotine dependence, unspecified, uncomplicated; Z88.6 Allergy status to analgesic agent
CPT/HCPCS: 99282

== ENCOUNTER 2017-10-20 06:15 | Emergency (ER) | payer MEDICARE, OTHER ==
[2017-10-20 06:23] VITALS: BP 126/61; PULSE 80; RESP 20; TEMP 98.1
[2017-10-20 07:18] LABS: Appearance,Urine Cloudy (Clear); Bilirubin,Urine Negative (Negative); Blood,Urine Moderate (Negative); Color,Urine Yellow; Glucose,Urine (UA) Negative (Negative); Ketones,Urine Negative (Negative); Leukocyte Esterase,Urine Moderate (Negative); Mucus,Urine Few /hpf; Nitrite,Urine Negative (Negative); PH, Urine 5.5 (5.0-8.0); Protein,Urine Trace (Negative); RBC,Urine 8 /hpf (0-5); Specific Gravity,Urine 1.025 (1.001-1.035); Squamous Epithelial Cell,Urine 5 /hpf (0-4); WBC,Urine 11 /hpf (0-5)
[2017-10-20] MEDS ORDERED: ACETAMINOPHEN TAB 500 MG TAB PO STA (07:25)
[2017-10-20] MEDS ORDERED: IBUPROFEN 600 MG STARTER PACK 4 TAB BTL PO STA (07:25)
--- NOTE | 2017-10-20 07:28 | ED ---
General Adult HPI - General Chief complaint: Abdominal Pain Stated complaint: Ear ache Time Seen by Provider: 10/20/17 07:11 Source: patient, RN notes reviewed, old records reviewed Mode of arrival: ambulatory Limitations: no limitations - History of Present Illness Initial comments: Patient's 31-year-old female who presents emergency room today with multiple complaints. Patient does admit to some pain in lower abdomen that started yesterday she states that she was laying down and went to sit up and had pain in lower abdomen. States pain comes and goes but seems to be worse she sitting up or moving around. She states she is lying down feels better. Patient states feels like she is on her menstrual cycle. Patient also admits that she' s had chronic ear infections to the right ear. She states that it seems to be doing well at this time. Denies any drainage or discharge. She denies any other complaints or symptoms at this time. Patient denies any recent fever, chills, shortness of breath, chest pain, back pain, nausea or vomiting, numbness or tingling, dysuria or hematuria, constipation or diarrhea, headaches or visual changes, or any other complaints. - Related Data Home Medications Medication Instructions Recorded Confirmed No Known Home Medications 10/20/17 10/20/17 Allergies Allergy/AdvReac Type Severity Reaction Status Date / Time naproxen [From Naprosyn] Allergy Rash/Hives Verified 09/30/17 04:56 Review of Systems ROS Statement: Those systems with pertinent positive or pertinent negative responses have been documented in the HPI. ROS Other: All systems not noted in ROS Statement are negative. Past Medical History Past Medical History: No Reported History Additional Past Medical History / Comment(s): chronic back pain History of Any Multi-Drug Resistant Organisms: None Reported Past Surgical History: Section Past Psychological History: No Psychological Hx Reported Smoking Status: Current every day smoker Past Alcohol Use History: None Reported Past Drug Use History: None Reported General Exam - General Exam Comments Initial Comments: General: The patient is awake and alert, in no distress, and does not appear acutely ill. Eye: Pupils are equal, round and reactive to light, extra-ocular movements are intact. No nystagmus. There is normal conjunctiva bilaterally. No signs of icterus. Ears, nose, mouth and throat: There are moist mucous membranes and no oral lesions. TMs clear bilaterally. Neck: The neck is supple, there is no tenderness or JVD. Cardiovascular: There is a regular rate and rhythm. No murmur, rub or gallop is appreciated. Respiratory: Lungs are clear to auscultation, respirations are non-labored, breath sounds are equal. No wheezes, stridor, rales, or rhonchi. Gastrointestinal: Soft, non-distended, non-tender abdomen without masses or organomegaly noted. There is no rebound or guarding present. No CVA tenderness. Musculoskeletal: Normal ROM, no tenderness. Strength 5/5. Sensation intact. Neurological: A&O x 3. CN II-XII intact, There are no obvious motor or sensory deficits. Coordination appears grossly intact. Speech is normal. Skin: Skin is warm and dry and no rashes or lesions are noted. Psychiatric: Cooperative, appropriate mood & affect, normal judgment. Limitations: no limitations Course Vital Signs 10/20/17 06:18 Temperature 98.1 F Pulse Rate 80 Respiratory 20 Rate Blood Pressure 126/61 O2 Sat by Pulse 100 Oximetry Medical Decision Making - Medical Decision Making Patient examined here in the emergency room options were discussed about IV and blood work. She has declined. She states just started yesterday she is, or following up with her family doctor. Patient also advised follow-up with ENT for recent multiple ear infections. Today TMs are clear no sign of infection. Urinalysis does show 11 white cells with 5 epithelial cells. Culture is pending. Patient will be discharged home given instructions to do Tylenol/ ibuprofen for pain as needed and return if symptoms increase or worsen. - Lab Data Lab Results 10/20/17 10/20/17 Range/Units 07:09 07:09 Urine Color Yellow Urine Appearance Cloudy H (Clear) Urine pH 5.5 (5.0-8.0) Ur Specific [place] 1.025 (1.001-1.035) Urine Protein Trace H (Negative) Urine Glucose (UA) Negative (Negative) Urine Ketones Negative (Negative) Urine Blood Moderate H (Negative) Urine Nitrite Negative (Negative) Urine Bilirubin Negative (Negative) Urine Urobilinogen 2.0 (<2.0) mg/dL Ur Leukocyte Esterase Moderate H (Negative) Urine RBC 8 H (0-5) /hpf Urine WBC 11 H (0-5) /hpf Ur Squamous Epith Cells 5 H (0-4) /hpf Urine Mucus Few H (None) /hpf Urine HCG, Qual Not Detected (Not Detectd) Disposition Clinical Impression: Abdominal pain Disposition: HOME SELF-CARE Condition: Good Instructions: Abdominal Pain (ED) Additional Instructions: Please use medication as discussed. Please follow-up with family doctor in the next 2 days of symptoms have not improved. Please return to emergency room if the symptoms increase or worsen or for any other concerns. Is patient prescribed a controlled substance at d/c from ED?: No Referrals: Arnol Jean MD [Primary Care Provider] - 1-2 days Cristhian Hernandez MD [STAFF PHYSICIAN] - 1-2 days Time of Disposition: 07:28
== END 2017-10-20 07:37 | disposition home or self-care (01) ==
LOC: EC 06:15
DX: R10.30 Lower abdominal pain, unspecified (principal); H92.01 Otalgia, right ear; F17.200 Nicotine dependence, unspecified, uncomplicated; Z88.6 Allergy status to analgesic agent
CPT/HCPCS: 81001; 81025; 87086; 99284

== ENCOUNTER → 2018-03-03 | Outpatient (CLI) | payer MEDICARE, OTHER ==
[2018-03-03 13:24] LABS: Basophils % (A) 0 %; Eosinophils # (A) 0.1 k/uL (0-0.7); Eosinophils % (A) 1 %; HCT 39.9 % (34.0-46.0); HGB 12.8 gm/dL (11.4-16.0); Hypochromasia Slight; Lymphocytes # (A) 2.1 k/uL (1.0-4.8); Lymphocytes % (A) 25 %; MCH 29.5 pg (25.0-35.0); MCHC 32.1 g/dL (31.0-37.0); Mean Platelet Volume 6.5; Monocytes # (A) 0.3 k/uL (0-1.0); Monocytes % (A) 3 %; Neutrophils # (A) 5.9 k/uL (1.3-7.7); Neutrophils % (A) 69 %; Platelet Count 444 k/uL (150-450); RBC 4.34 m/uL (3.80-5.40); RDW 15.3 % (11.5-15.5); WBC 8.4 k/uL (3.8-10.6)
[2018-03-03 20:13] LABS: Albumin 4.4 g/dL (3.80-4.90); Albumin/Globulin Ratio 1.91 (1.20-2.10); Anion Gap 12.2 mmol/L (4.00-12.00); Calcium 9.1 mg/dL (8.7-10.3); Carbon Dioxide 22.8 mmol/L (21.6-31.8); Globulin 2.3 g/dL (1.6-3.3); LDL Cholesterol,Calculated 50.8 mg/dL (0.0-131.0); Potassium 4.2 mmol/L (3.5-5.5); Total Bilirubin 0.2 mg/dL (0.2-1.2); Total Protein 6.7 g/dL (6.2-8.2); VLDL Calculation 19.2 mg/dL (5.00-40.00)
[2018-03-03 20:21] LABS: T4, Free (Free Thyroxine) 1.2 ng/dL (0.80-1.80)
[2018-03-04 01:37] LABS: Hemoglobin A1C 5.8 % (4.0-6.0)
== END | disposition home or self-care (01) ==
LOC: LABWHC1 12:28
PROVIDERS: ATTEND Psychiatry & Neurology Psychiatry
DX: F31.2 Bipolar disorder, current episode manic severe with psychotic features (principal)
CPT/HCPCS: 36415; 80053; 80061; 83036; 84439; 84443; 85025

== ENCOUNTER → 2019-09-07 | Outpatient (CLI) | payer MEDICARE, OTHER ==
--- NOTE | 2019-09-07 13:53 | MR ---
EXAMINATION TYPE: MR lumbar spine wo con DATE OF EXAM: 09/07/2019 COMPARISON: MRI lumbar spine September 12, 2015 HISTORY: Chronic low back pain without sciatica per order. Pain in back for a few years extending int o left thigh. TECHNIQUE: Multiplanar, multisequence imaging of the lumbar spine is performed without IV contrast. FINDINGS: Sagittal images of the lumbar spine show vertebral body heights and alignment to remain sat isfactory. Increasing disc desiccation L5-S1 level. Disc space heights are maintained. The conus medu llaris remains stable in position ending at mid L2 level without abnormal signal. The bone marrow si gnal intensity is within normal limits. Axial images show the T12-L1, L1-L2, L2-L3, and L3-L4 levels all to remain within normal limits. Axial images at the L4-L5 level show tiny left paracentral disc protrusion and mild facet arthropathy bilaterally. Bilateral neural foramina are patent. No significant change from prior. Axial images at L5-S1 level show stable mild facet degenerative changes. No new disc herniation. Neur al foramina are patent. Paraspinal muscle bulk is maintained. IMPRESSION: Mild multilevel degenerative changes in the lower lumbar spine, no significant change or degenerative progression from 2016 MRI.
== END | disposition home or self-care (01) ==
LOC: RADMRIMAIN 09:05 → EEVIPCON 12:45
PROVIDERS: ATTEND Family Medicine
DX: M47.896 Other spondylosis, lumbar region (principal)
CPT/HCPCS: 72148

== ENCOUNTER 2020-11-07 10:53 | Emergency (ER) | payer MEDICARE, OTHER ==
[2020-11-07 10:57] VITALS: BP 116/65; PULSE 109; RESP 18; TEMP 98.1
[2020-11-07 11:39] LABS: Appearance,Urine Clear (Clear); Bilirubin,Urine Negative (Negative); Blood,Urine Negative (Negative); Color,Urine Yellow; Glucose,Urine (UA) Negative (Negative); Ketones,Urine Trace (Negative); Leukocyte Esterase,Urine Negative (Negative); Nitrite,Urine Negative (Negative); Protein,Urine Trace (Negative); Specific Gravity,Urine 1.021 (1.001-1.035); Urobilinogen,Urine <2.0 mg/dL (<2.0)
--- NOTE | 2020-11-07 11:51 | ED ---
General Adult HPI - General Chief complaint: ENT Stated complaint: ear infection Time Seen by Provider: 11/07/20 11:01 Source: patient, RN notes reviewed Mode of arrival: ambulatory Limitations: no limitations - History of Present Illness Initial comments: 35-year-old female presents to emergency department for right ear pain. She states it feels plugged. Patient states that this is on for couple days. She is chronic this is a chronic issue, she also complains of complains of a yeast infection. She has recurrent issues. She denies any other complaints. Patient denies any chance . Patient offers no complaints. - Related Data Previous Rx's Medication Instructions Recorded Amoxicillin 875 mg PO Q12HR #20 tablet 11/10/19 Fluticasone Nasal [place] [Flonase 1 spray EA NOSTRIL DAILY 7 Days #1 11/10/19 Nasal [place]] bottle Loratadine [Claritin] 10 mg PO DAILY #20 tab 11/10/19 Fluconazole [Diflucan] 150 mg PO ONCE #2 tab 11/07/20 Fluticasone Nasal [place] [Flonase 2 spr EA NOSTRIL DAILY #16 gm 11/07/20 Nasal [place]] Allergies Allergy/AdvReac Type Severity Reaction Status Date / Time naproxen [From Naprosyn] Allergy Rash/Hives Verified 11/07/20 10:54 Review of Systems ROS Statement: Those systems with pertinent positive or pertinent negative responses have been documented in the HPI. ROS Other: All systems not noted in ROS Statement are negative. Past Medical History Past Medical History: No Reported History Additional Past Medical History / Comment(s): chronic back pain History of Any Multi-Drug Resistant Organisms: None Reported Past Surgical History: Section Past Psychological History: No Psychological Hx Reported Smoking Status: Current every day smoker Past Alcohol Use History: None Reported Past Drug Use History: None Reported General Exam Limitations: no limitations General appearance: alert, in no apparent distress Head exam: Present: atraumatic, normocephalic, normal inspection Eye exam: Present: normal appearance, PERRL, EOMI. Absent: scleral icterus, conjunctival injection, periorbital swelling ENT exam: Present: normal oropharynx, mucous membranes moist. Absent: normal exam, TM's normal bilaterally (Mild fluid noted in the right no erythema) Neck exam: Present: normal inspection, full ROM. Absent: tenderness, meningismus, lymphadenopathy Respiratory exam: Present: normal lung sounds bilaterally. Absent: respiratory distress, wheezes, rales, rhonchi, stridor Cardiovascular Exam: Present: regular rate, normal rhythm, normal heart sounds. Absent: systolic murmur, diastolic murmur, rubs, gallop, clicks GI/Abdominal exam: Present: soft, normal bowel sounds. Absent: distended, tenderness, guarding, rebound, rigid Course Vital Signs 11/07/20 10:54 Temperature 98.1 F Pulse Rate 109 H Respiratory 18 Rate Blood Pressure 116/65 O2 Sat by Pulse 98 Oximetry Medical Decision Making - Medical Decision Making Patient has a stationary dysfunction she is advised take a decongestant. Patient has no evidence of urinary tract infection negative will be treated for for yeast infection. Patient complains of it. - Lab Data Lab Results 11/07/20 11/07/20 Range/Units 11:18 11:18 Urine Color Yellow Urine Appearance Clear (Clear) Urine pH 6.0 (5.0-8.0) Ur Specific [place] 1.021 (1.001-1.035) Urine Protein Trace H (Negative) Urine Glucose (UA) Negative (Negative) Urine Ketones Trace H (Negative) Urine Blood Negative (Negative) Urine Nitrite Negative (Negative) Urine Bilirubin Negative (Negative) Urine Urobilinogen <2.0 (<2.0) mg/dL Ur Leukocyte Esterase Negative (Negative) Urine HCG, Qual Not Detected (Not Detectd) Disposition Clinical Impression: Candidiasis of vagina, Eustachian tube dysfunction Disposition: HOME SELF-CARE Condition: Stable Instructions (If sedation given, give patient instructions): Earache (ED) Additional Instructions: Please return to the Emergency Department if symptoms worsen or any other concerns. Prescriptions: Fluconazole [Diflucan] 150 mg PO ONCE #2 tab Fluticasone Nasal [place] [Flonase Nasal [place]] 2 spr EA NOSTRIL DAILY #16 gm Is patient prescribed a controlled substance at d/c from ED?: No Referrals: George Arteaga MD [Primary Care Provider] - 1-2 days Time of Disposition: 11:51
[2020-11-08 15:08] LABS: C. trachomatis,PCR Negative (Neg,Equiv); Chlamydia trachomatis Source Urine; N. gonorrhoeae,PCR Negative (Neg,Equiv); Neisseria Source Urine
== END 2020-11-07 12:01 | disposition home or self-care (01) ==
LOC: EC 10:53
DX: H69.81 Other specified disorders of Eustachian tube, right ear (principal); B37.3 Candidiasis of vulva and vagina; F17.200 Nicotine dependence, unspecified, uncomplicated; Z88.6 Allergy status to analgesic agent
CPT/HCPCS: 81003; 81025; 87491; 87591; 99283

== ENCOUNTER 2020-11-12 07:05 | Emergency (ER) | payer MEDICARE, OTHER ==
[2020-11-12 07:17] VITALS: BP 121/80; PULSE 98; RESP 18; TEMP 98.3
--- NOTE | 2020-11-12 07:30 | ED ---
General Adult HPI - General Stated complaint: Ear Pain Time Seen by Provider: 11/12/20 07:14 Source: patient, RN notes reviewed Mode of arrival: ambulatory Limitations: no limitations - History of Present Illness Initial comments: This a 35-year-old female presented from chief complaint of right ear pain, vaginal discharge. Patient states she was treated for use but did not seem to improve she has have a history of material vaginosis. Patient's urinalysis was negative for UTI, . Patient denies any abdominal pain denies fevers or chills. Patient states her right ear is mildly improved she states she's been using nasal spray which has improved her nasal drainage, sore throat. - Related Data Previous Rx's Medication Instructions Recorded Amoxicillin 875 mg PO Q12HR #20 tablet 11/10/19 Fluticasone Nasal [place] [Flonase 1 spray EA NOSTRIL DAILY 7 Days #1 11/10/19 Nasal [place]] bottle Loratadine [Claritin] 10 mg PO DAILY #20 tab 11/10/19 Fluconazole [Diflucan] 150 mg PO ONCE #2 tab 11/07/20 Fluticasone Nasal [place] [Flonase 2 spr EA NOSTRIL DAILY #16 gm 11/07/20 Nasal [place]] Ibuprofen [Motrin] 600 mg PO Q8HR PRN #20 tab 11/12/20 metroNIDAZOLE [Flagyl] 500 mg PO TID #21 tab 11/12/20 Allergies Allergy/AdvReac Type Severity Reaction Status Date / Time naproxen [From Naprosyn] Allergy Rash/Hives Verified 11/07/20 10:54 Review of Systems ROS Statement: Those systems with pertinent positive or pertinent negative responses have been documented in the HPI. ROS Other: All systems not noted in ROS Statement are negative. Past Medical History Past Medical History: No Reported History Additional Past Medical History / Comment(s): chronic back pain History of Any Multi-Drug Resistant Organisms: None Reported Past Surgical History: Section Past Psychological History: No Psychological Hx Reported Smoking Status: Current every day smoker Past Alcohol Use History: None Reported Past Drug Use History: None Reported General Exam Limitations: no limitations General appearance: alert, in no apparent distress Head exam: Present: atraumatic, normocephalic, normal inspection Eye exam: Present: normal appearance, PERRL, EOMI. Absent: scleral icterus, conjunctival injection, periorbital swelling ENT exam: Present: normal exam, normal oropharynx, mucous membranes moist Neck exam: Present: normal inspection, full ROM. Absent: tenderness, meningismus, lymphadenopathy Respiratory exam: Present: normal lung sounds bilaterally. Absent: respiratory distress, wheezes, rales, rhonchi, stridor Cardiovascular Exam: Present: regular rate, normal rhythm, normal heart sounds. Absent: systolic murmur, diastolic murmur, rubs, gallop, clicks GI/Abdominal exam: Present: soft, normal bowel sounds. Absent: distended, tenderness, guarding, rebound, rigid Course Vital Signs 11/12/20 07:15 Temperature 98.3 F Pulse Rate 98 Respiratory 18 Rate Blood Pressure 121/80 O2 Sat by Pulse 96 Oximetry Medical Decision Making - Medical Decision Making Patient was started on Flagyl for bacterial vaginosis. Patient has no evidence of otitis media, patient is no perforation will be discharged to [facility]. Disposition Clinical Impression: Bacterial vaginosis, Otalgia Disposition: HOME SELF-CARE Condition: Stable Instructions (If sedation given, give patient instructions): Earache (ED) Additional Instructions: Please return to the Emergency Department if symptoms worsen or any other concerns. Prescriptions: metroNIDAZOLE [Flagyl] 500 mg PO TID #21 tab Ibuprofen [Motrin] 600 mg PO Q8HR PRN #20 tab PRN Reason: Pain Is patient prescribed a controlled substance at d/c from ED?: No Referrals: George Arteaga MD [Primary Care Provider] - 1-2 days Time of Disposition: 07:30
== END 2020-11-12 07:41 | disposition home or self-care (01) ==
LOC: EC 07:05
DX: N76.0 Acute vaginitis (principal); H92.01 Otalgia, right ear; F17.200 Nicotine dependence, unspecified, uncomplicated; Z88.6 Allergy status to analgesic agent
CPT/HCPCS: 99283

== ENCOUNTER 2021-11-11 07:53 | Emergency (ER) | payer MEDICARE, OTHER ==
[2021-11-11 08:03] VITALS: BP 146/78; PULSE 92; RESP 18; TEMP 97.9
--- NOTE | 2021-11-11 08:52 | ED ---
ENT HPI - General Chief complaint: ENT Stated complaint: bilat ear pain Time Seen by Provider: 11/11/21 08:30 Source: patient, RN notes reviewed Mode of arrival: ambulatory Limitations: no limitations - History of Present Illness Initial comments: 36-year-old female presents emergency Department chief complaint of ear pain. Patient states started having a daily attempted worsen hydroxyurea right ear but states didn't help she's had increasing pain, minimal congestion. Patient denies any fevers or chills no sore throat and cough. - Related Data Previous Rx's Medication Instructions Recorded Amoxicillin 875 mg PO Q12HR #20 tablet 11/10/19 Fluticasone Nasal [place] [Flonase 1 spray EA NOSTRIL DAILY 7 Days #1 11/10/19 Nasal [place]] bottle Loratadine [Claritin] 10 mg PO DAILY #20 tab 11/10/19 Fluconazole [Diflucan] 150 mg PO ONCE #2 tab 11/07/20 Fluticasone Nasal [place] [Flonase 2 spr EA NOSTRIL DAILY #16 gm 11/07/20 Nasal [place]] Ibuprofen [Motrin] 600 mg PO Q8HR PRN #20 tab 11/12/20 metroNIDAZOLE [Flagyl] 500 mg PO TID #21 tab 11/12/20 Amoxicillin 875 mg PO Q12HR #20 tablet 11/11/21 Fluconazole [Diflucan] 150 mg PO ONCE #3 tab 11/11/21 Allergies Allergy/AdvReac Type Severity Reaction Status Date / Time naproxen [From Naprosyn] Allergy Rash/Hives Verified 11/11/21 08:03 Review of Systems ROS Statement: Those systems with pertinent positive or pertinent negative responses have been documented in the HPI. ROS Other: All systems not noted in ROS Statement are negative. Past Medical History Past Medical History: No Reported History Additional Past Medical History / Comment(s): chronic back pain History of Any Multi-Drug Resistant Organisms: None Reported Past Surgical History: Section Past Psychological History: No Psychological Hx Reported Smoking Status: Current every day smoker Past Alcohol Use History: None Reported Past Drug Use History: None Reported General Exam Limitations: no limitations General appearance: alert, in no apparent distress Head exam: Present: atraumatic, normocephalic, normal inspection Eye exam: Present: normal appearance, PERRL, EOMI. Absent: scleral icterus, conjunctival injection, periorbital swelling ENT exam: Present: normal oropharynx, mucous membranes moist, normal external ear exam. Absent: TM's normal bilaterally (Right TM erythematous mild fluid) Neck exam: Present: normal inspection. Absent: tenderness, meningismus, lympha denopathy Respiratory exam: Present: normal lung sounds bilaterally. Absent: respiratory distress, wheezes, rales, rhonchi, stridor Cardiovascular Exam: Present: regular rate, normal rhythm, normal heart sounds. Absent: systolic murmur, diastolic murmur, rubs, gallop, clicks Course Vital Signs 11/11/21 07:59 Temperature 97.9 F Pulse Rate 92 Respiratory 18 Rate Blood Pressure 146/78 O2 Sat by Pulse 100 Oximetry Medical Decision Making - Medical Decision Making 36-year-old presented for Alzheimer's her. Patient does have moderate fluid mild erythema be placed on antibiotics return parameters were discussed. Disposition Clinical Impression: Otitis media Disposition: HOME SELF-CARE Condition: Stable Instructions (If sedation given, give patient instructions): Earache (ED) Additional Instructions: Please return to the Emergency Department if symptoms worsen or any other concerns. Prescriptions: Amoxicillin 875 mg PO Q12HR #20 tablet Fluconazole [Diflucan] 150 mg PO ONCE #3 tab Is patient prescribed a controlled substance at d/c from ED?: No Referrals: George Arteaga MD [Primary Care Provider] - 1-2 days Time of Disposition: 08:52
== END 2021-11-11 09:02 | disposition home or self-care (01) ==
LOC: EC 07:53
DX: H66.93 Otitis media, unspecified, bilateral (principal); F17.200 Nicotine dependence, unspecified, uncomplicated; Z88.6 Allergy status to analgesic agent; Z79.899 Other long term (current) drug therapy
CPT/HCPCS: 99282

== ENCOUNTER 2021-11-27 13:52 | Emergency (ER) | payer MEDICARE, OTHER ==
[2021-11-27 13:57] VITALS: PULSE 100; RESP 20; TEMP 97.7
--- NOTE | 2021-11-27 14:39 | ED ---
ENT HPI - General Chief complaint: Eye Problems Stated complaint: eye infection/itchy Time Seen by Provider: 11/27/21 13:58 Source: patient, RN notes reviewed Mode of arrival: ambulatory Limitations: no limitations - History of Present Illness Initial comments: This is a 36-year-old female who presents to the emergency department for right eye pain and right ear pain. States the symptoms have been present for the last 2 days and she feels like they may be worsening. She has ear itching along with the ear pain. Denies any drainage or discharge from the ears. States that her right eye constantly feels like it wants to close and is swollen. She has had an increase in tearing and states that her eye was matted shut this morning. Denies any coughing or congestion. Denies any fevers, chills, sore throat, cough, dyspnea, chest pain, palpitations, abdominal pain, nausea, vomiting, diarrhea, back pain, or headaches. MD complaint: ear pain, other (eye pain) Onset/Timin -: days(s) Location: R ear - Related Data Previous Rx's Medication Instructions Recorded Amoxicillin 875 mg PO Q12HR #20 tablet 11/10/19 Fluticasone Nasal [place] [Flonase 1 spray EA NOSTRIL DAILY 7 Days #1 11/10/19 Nasal [place]] bottle Loratadine [Claritin] 10 mg PO DAILY #20 tab 11/10/19 Fluconazole [Diflucan] 150 mg PO ONCE #2 tab 11/07/20 Fluticasone Nasal [place] [Flonase 2 spr EA NOSTRIL DAILY #16 gm 11/07/20 Nasal [place]] Ibuprofen [Motrin] 600 mg PO Q8HR PRN #20 tab 11/12/20 metroNIDAZOLE [Flagyl] 500 mg PO TID #21 tab 11/12/20 Amoxicillin 875 mg PO Q12HR #20 tablet 11/11/21 Fluconazole [Diflucan] 150 mg PO ONCE #3 tab 11/11/21 Acetaminophen/Pamabrom [Midol 2 each PO Q6H PRN #30 tablet 11/27/21 [place]] Amoxic-Pot Clav 875-125Mg 1 tab PO Q12HR 7 Days #14 tab 11/27/21 [Augmentin 875-125] Ofloxacin 0.3% Otic Soln [Floxin 10 drops BOTH EARS Q24H 7 Days #10 11/27/21 0.3% Otic Soln] ml Polymyxin B-Trimeth Sulf Ophth 1 drops RIGHT EYE Q4H 7 Days #10 ml 11/27/21 [Polytrim Opthalmic] Allergies Allergy/AdvReac Type Severity Reaction Status Date / Time naproxen [From Naprosyn] Allergy Rash/Hives Verified 11/27/21 13:57 Review of Systems ROS Statement: Those systems with pertinent positive or pertinent negative responses have been documented in the HPI. ROS Other: All systems not noted in ROS Statement are negative. Past Medical History Past Medical History: No Reported History Additional Past Medical History / Comment(s): chronic back pain History of Any Multi-Drug Resistant Organisms: None Reported Past Surgical History: Section Past Psychological History: No Psychological Hx Reported Smoking Status: Current every day smoker Past Alcohol Use History: None Reported Past Drug Use History: None Reported General Exam Limitations: no limitations General appearance: alert, in no apparent distress Head exam: Present: atraumatic, normocephalic, normal inspection Eye exam: Present: conjunctival injection (Right-sided with mucopurulent crusting) ENT exam: Present: other (Bilateral TM and canal erythema with effusion) Respiratory exam: Present: normal lung sounds bilaterally. Absent: respiratory distress, wheezes, rales, rhonchi, stridor Cardiovascular Exam: Present: regular rate, normal rhythm, normal heart sounds. Absent: systolic murmur, diastolic murmur, rubs, gallop, clicks Neurological exam: Present: alert, oriented X3, CN II-XII intact Psychiatric exam: Present: normal affect, normal mood Skin exam: Present: warm, dry, intact, normal color. Absent: rash Course Vital Signs 11/27/21 13:54 Temperature 97.7 F Pulse Rate 100 Respiratory 20 Rate O2 Sat by Pulse 95 Oximetry Medical Decision Making - Medical Decision Making This is a 36-year-old female who presents to the emergency department for eye pain and ear pain. Physical examination of the ears is consistent with a bilateral otitis media and externa. Given that she has an ear infection, will treat the eye pain with antibacterial eyedrops. Prescription for 7 day course of Augmentin and ofloxacin eardrops provided. She was also given a 7 day course of Polytrim eyedrops. Dosing instructions discussed with the patient. Rx for Midol provided as well per the patient's request for period cramps. Return precautions reviewed in depth, the patient is instructed to return to the emergency department with any new, worsening, or concerning symptoms. Patient verbalized understanding. This case was discussed in detail with the attending ED physician. Presentation, findings, and treatment plan discussed in detail as well. Disposition Clinical Impression: AOM (acute otitis media), Otitis externa, Conjunctivitis Disposition: HOME SELF-CARE Instructions (If sedation given, give patient instructions): Swimmer's Ear (ED), Ear Infection (ED), Conjunctivitis (ED) Additional Instructions: Return to the emergency department with any new, worsening, or concerning symptoms. Take the Augmentin twice daily for 7 days. The ofloxacin eardrops will be used as 10 drops in both ears once daily for 7 days. The Polytrim eyedrops will be used as one drop to the right eye every 4 hours while you are a wake for 7 days. Take the Midol up to every 6 hours as needed, you may take 2 tablets at a time. Do not take more than 6 of these in 24 hours. Follow up with your primary care provider in 1-2 days. Prescriptions: Amoxic-Pot Clav 875-125Mg [Augmentin 875-125] 1 tab PO Q12HR 7 Days #14 tab Ofloxacin 0.3% Otic Soln [Floxin 0.3% Otic Soln] 10 drops BOTH EARS Q24H 7 Days #10 ml Acetaminophen/Pamabrom [Midol [place]] 2 each PO Q6H PRN #30 tablet PRN Reason: Pain Polymyxin B-Trimeth Sulf Ophth [Polytrim Opthalmic] 1 drops RIGHT EYE Q4H 7 Days #10 ml Is patient prescribed a controlled substance at d/c from ED?: No Referrals: None,Stated [Primary Care Provider] - 1-2 days
== END 2021-11-27 14:42 | disposition home or self-care (01) ==
LOC: EC 13:52
DX: H66.91 Otitis media, unspecified, right ear (principal); H10.9 Unspecified conjunctivitis; H60.91 Unspecified otitis externa, right ear; F17.200 Nicotine dependence, unspecified, uncomplicated; Z88.8 Allergy status to other drugs, medicaments and biological substances
CPT/HCPCS: 99283

== ENCOUNTER 2022-12-15 09:21 | Emergency (ER) | payer MEDICARE, OTHER ==
[2022-12-15 09:51] VITALS: RESP 18
--- NOTE | 2022-12-15 10:39 | ED ---
General Adult HPI - General Chief complaint: Upper Respiratory Infection Stated complaint: cough,congestion Time Seen by Provider: 12/15/22 10:14 Source: patient Mode of arrival: ambulatory Limitations: no limitations - Related Data Previous Rx's Medication Instructions Recorded Amoxicillin 875 mg PO Q12HR #20 tablet 11/10/19 Fluticasone Nasal [place] [Flonase 1 spray EA NOSTRIL DAILY 7 Days #1 11/10/19 Nasal [place]] bottle Loratadine [Claritin] 10 mg PO DAILY #20 tab 11/10/19 Fluconazole [Diflucan] 150 mg PO ONCE #2 tab 11/07/20 Fluticasone Nasal [place] [Flonase 2 spr EA NOSTRIL DAILY #16 gm 11/07/20 Nasal [place]] Ibuprofen [Motrin] 600 mg PO Q8HR PRN #20 tab 11/12/20 metroNIDAZOLE [Flagyl] 500 mg PO TID #21 tab 11/12/20 Amoxicillin 875 mg PO Q12HR #20 tablet 11/11/21 Fluconazole [Diflucan] 150 mg PO ONCE #3 tab 11/11/21 Acetaminophen/Pamabrom [Midol 2 each PO Q6H PRN #30 tablet 11/27/21 [place]] Amoxic-Pot Clav 875-125Mg 1 tab PO Q12HR 7 Days #14 tab 11/27/21 [Augmentin 875-125] Ofloxacin 0.3% Otic Soln [Floxin 10 drops BOTH EARS Q24H 7 Days #10 11/27/21 0.3% Otic Soln] ml Polymyxin B-Trimeth Sulf Ophth 1 drops RIGHT EYE Q4H 7 Days #10 ml 11/27/21 [Polytrim Opthalmic] Dicyclomine [Bentyl] 20 mg PO BID #10 tablet 04/04/22 Benzonatate [Tessalon Perles] 100 mg PO TID PRN #15 capsule 12/15/22 Cetirizine HCl/Pseudoephedrine 1 tab PO Q12H #10 tab 12/15/22 [Zyrtec-D ER 5 mg-120 mg Tablet] Fluticasone Nasal [place] [Flonase 2 spray EA NOSTRIL DAILY #16 gm 12/15/22 Nasal [place]] Allergies Allergy/AdvReac Type Severity Reaction Status Date / Time naproxen [From Naprosyn] Allergy Rash/Hives Verified 10/30/23 09:30 Review of Systems ROS Statement: Those systems with pertinent positive or pertinent negative responses have been documented in the HPI. ROS Other: All systems not noted in ROS Statement are negative. Past Medical History Past Medical History: No Reported History Additional Past Medical History / Comment(s): chronic back pain History of Any Multi-Drug Resistant Organisms: None Reported Past Surgical History: Section Past Psychological History: No Psychological Hx Reported Smoking Status: Current every day smoker Past Alcohol Use History: None Reported Past Drug Use History: None Reported General Exam Limitations: no limitations, language barrier General appearance: alert, in no apparent distress Head exam: Present: atraumatic Eye exam: Present: normal appearance, PERRL ENT exam: Present: normal exam, normal oropharynx, normal external ear exam, other (Eustachian tube dysfunction with fluid by me is without any erythema perforation or signs of infection. No mastoid tenderness.) Neck exam: Present: normal inspection, full ROM, other (No nuchal rigidity) Respiratory exam: Present: normal lung sounds bilaterally, other (No wheezing, Rales or rhonchi. No respiratory distress. No notable cough.) Cardiovascular Exam: Present: regular rate, normal rhythm GI/Abdominal exam: Present: soft Extremities exam: Present: full ROM Neurological exam: Present: alert, oriented X3, CN II-XII intact Psychiatric exam: Present: normal affect, normal mood Skin exam: Present: warm, dry Course Vital Signs 12/15/22 09:26 Temperature 98 F Pulse Rate 68 Respiratory 18 Rate Blood Pressure 157/94 O2 Sat by Pulse 100 Oximetry - Reevaluation(s) Reevaluation #1: 12/15/22 12:53 Patient is well-appearing emergency room. She is in no respiratory distress. Patient states she does not feel so she needs a pelvic exam or ultrasound or she is not having any pain and has had no change in sexual history. She does not believe she is . She is just concerned that she is having spotting for secondhand smoke. Discussed following up with the wedding day coordinator earlier follow- up evaluation the regular menstrual cycles. Discussed management of the upper respiratory infection with patient. She understands and agrees to treatment discharge plan. Medical Decision Making - Medical Decision Making Was pt. sent in by a medical professional or institution (, PA, PHYSIOLOGICAL CHEMIST, urgent care, hospital, or longterm...) When possible be specific @ -[No] Did you speak to anyone other than the patient for history (EMS, parent, family, police, friend...)? What history was obtained from this source @ -[No] Did you review nursing and triage notes (agree or disagree)? Why? @ -[I reviewed and agree with nursing and triage notes] Were old charts reviewed (outside hosp., previous admission, EMS record, old EKG, old radiological studies, urgent care reports/EKG's, longterm records)? Report findings @ -[No old charts were reviewed] Differential Diagnosis (chest pain, altered mental status, abdominal pain women, abdominal pain men, vaginal bleeding, weakness, fever, dyspnea, syncope, headache, dizziness, GI bleed, back pain, seizure, CVA, palpatations, mental health, musculoskeletal)? @ -URI, sinusitis, Covid, influenza, dysfunctional uterine bleeding, , UTI EKG interpreted by me (3pts min.). @ -[As above] X-rays interpreted by me (1pt min.). @ -[None done] CT interpreted by me (1pt min.). @ -[None done] U/S interpreted by me (1pt. min.). @ -[None done] What testing was considered but not performed or refused? (CT, X-rays, U/S, labs)? Why? @ -, Pelvic ultrasound for irregular vaginal bleeding. Patient refused as she felt as though was not needed. Wha for thet meds were considered but not given or refused? Why? @ -[None] Did you discuss the management of the patient with other professionals (professionals i.e. , PA, PHYSIOLOGICAL CHEMIST, lab, RT, psych nurse, social media marketing analyst, mobile sales consultant, teacher, title officer, showcase trimmer)? Give summary @ -I discussed patient's symptoms, workup and disposition with attending Ed Physician Dr Cardenas today. Was smoking cessation discussed for >3mins.? @ -[No] Was critical care preformed (if so, how long)? @ -[No] Were there social determinants of health that impacted care today? How? (Homelessness, low income, unemployed, alcoholism, drug addiction, transportation, low edu. Level, literacy, decrease access to med. care, residential, rehab)? @ -[No] Was there de-escalation of care discussed even if they declined (Discuss DNR or withdrawal of care, Hospice)? DNR status @ -[No] What co-morbidities impacted this encounter? (DM, HTN, Smoking, COPD, CAD, Cancer, CVA, ARF, Chemo, Hep., AIDS, mental health diagnosis, sleep apnea, morbid obesity)? @ -[None] Was patient admitted / discharged? Hospital course, mention meds given and route, prescriptions, significant lab abnormalities, going to OR and other pertinent info. @ -The patient is stable. She is in no respiratory distress. Her labs and chest x-ray unremarkable. She is stable to follow up with outpatient medicine for continued symptoms. I discussed treatment plan the URI and congestion with patient. Discussed going up with gynecology she understands agrees to treatment discharge plan. Undiagnosed new problem with uncertain prognosis? @ -[No] Drug Therapy requiring intensive monitoring for toxicity (Heparin, Nitro, Insulin, Cardizem)? @ -[No] Were any procedures done? @ -[No] Diagnosis/symptom? @ -Dysfunctional Uterine Bleeding. URI, Sinusitis Acute, or Chronic, or Acute on Chronic? @ -[Acute Uncomplicated (without systemic symptoms) or Complicated (systemic symptoms)? @ -Uncomplicated Side effects of treatment? @ -[No] Exacerbation, Progression, or Severe Exacerbation? @ -[No] Poses a threat to life or bodily function? How? (Chest pain, [place], [place], pneumonia, PE, COPD, DKA, ARF, appy, cholecystitis, CVA, Diverticulitis, Homicidal, Suicidal, threat to staff... and all critical care pts) @ -[No] - Lab Data Lab Results 12/15/22 12/15/22 12/15/22 Range/Units 11:00 11:00 11:00 Urine Color Yellow Urine Appearance Cloudy H (Clear) Urine pH 5.5 (5.0-8.0) Ur Specific [place] 1.012 (1.001-1.035) Urine Protein Trace H (Negative) Urine Glucose (UA) Negative (Negative) Urine Ketones Negative (Negative) Urine Blood Large H (Negative) Urine Nitrite Negative (Negative) Urine Bilirubin Negative (Negative) Urine Urobilinogen <2.0 (<2.0) mg/dL Ur Leukocyte Esterase Small H (Negative) Urine RBC >182 H (0-5) /hpf Urine WBC 10 H (0-5) /hpf Ur Squamous Epith Cells 2 (0-4) /hpf Urine Bacteria Rare H (None) /hpf Urine Mucus Rare H (None) /hpf Urine HCG, Qual Not Detected (Not Detectd) Influenza Type A (PCR) Not Detected (Not Detectd) Influenza Type B (PCR) Not Detected (Not Detectd) RSV (PCR) Not Detected (Not Detectd) SARS-CoV-2 (PCR) Not Detected (Not Detectd) Disposition Clinical Impression: URI (upper respiratory infection), Dysfunctional uterine bleeding, Sinusitis Disposition: HOME SELF-CARE Condition: Good Instructions (If sedation given, give patient instructions): Upper Respiratory Infection (ED), Abnormal (Dysfunctional) Uterine Bleeding (ED), Sinusitis (ED) Is patient prescribed a controlled substance at d/c from ED?: No When asked, does pt state using other controlled substances?: No Referrals: George Arteaga MD [Primary Care Provider] - 1-2 days Time of Disposition: 13:09
--- NOTE | 2022-12-15 11:21 | XR ---
EXAMINATION TYPE: XR chest 2V DATE OF EXAM: 12/15/2022 11:11 AM CLINICAL INDICATION:Female, 37 years old with history of cough; [facility] COMPARISON: Chest radiographs from 03/20/2011 TECHNIQUE: XR chest 2V Frontal and lateral views of the chest. FINDINGS: Lungs/Pleura: There is no evidence of pleural effusion, focal consolidation, or pneumothorax. Pulmonary vascularity: Unremarkable. Heart/mediastinum: Cardiomediastinal silhouette is unremarkable. Musculoskeletal: No acute osseous pathology. IMPRESSION: No acute cardiopulmonary disease/process.
[2022-12-15 11:51] LABS: Appearance,Urine Cloudy (Clear); Bacteria,Urine Rare /hpf; Bilirubin,Urine Negative (Negative); Blood,Urine Large (Negative); Color,Urine Yellow; Glucose,Urine (UA) Negative (Negative); Ketones,Urine Negative (Negative); Leukocyte Esterase,Urine Small (Negative); Mucus,Urine Rare /hpf; Nitrite,Urine Negative (Negative); PH, Urine 5.5 (5.0-8.0); Protein,Urine Trace (Negative); RBC,Urine >182 /hpf (0-5); Specific Gravity,Urine 1.012 (1.001-1.035); Squamous Epithelial Cell,Urine 2 /hpf (0-4); Urobilinogen,Urine <2.0 mg/dL (<2.0); WBC,Urine 10 /hpf (0-5)
[2022-12-15] MEDS ORDERED: ACETAMINOPHEN TAB 325 MG TAB PO STA (12:00)
[2022-12-15 13:38] VITALS: BP 146/80; PULSE 76; TEMP 97.8
[2022-12-16 15:04] LABS: N. gonorrhoeae,PCR Negative (Negative)
[2022-12-16 15:14] LABS: C. trachomatis,PCR Negative (Negative)
== END 2022-12-15 13:27 | disposition home or self-care (01) ==
LOC: EC 09:21
DX: J01.90 Acute sinusitis, unspecified (principal); N93.8 Other specified abnormal uterine and vaginal bleeding; F17.200 Nicotine dependence, unspecified, uncomplicated; Z88.8 Allergy status to other drugs, medicaments and biological substances; Z20.822 Contact with and (suspected) exposure to COVID-19
CPT/HCPCS: 71046; 81001; 81025; 87491; 87591; 87636; 99284

== ENCOUNTER 2023-06-02 03:37 | Emergency (ER) | payer MEDICARE, OTHER ==
[2023-06-02 03:54] VITALS: TEMP 98
--- NOTE | 2023-06-02 04:08 | ED ---
Headache HPI - General Chief Complaint: Headache Stated Complaint: Headache Source: RN notes reviewed, old records reviewed Mode of arrival: EMS Limitations: no limitations - History of Present Illness Initial Comments: This is a 37-year-old female to ER for evaluation of headache patient has throbbing of the head with significant headache and is concerned she may have coronavirus. But no fevers no nausea no vomiting no travel history no sick contacts no trauma no recent history of head injury no neurological complaints has persistent headache with nausea, worse with bright lights worse with bright noise MD Complaint: headache, "migraine" (History of migraine) -: hour(s) Onset Description: gradual Location: right, left, frontal, temporal Severity: mild Severity scale (1-10): 2 Quality: throbbing Consistency: intermittent Improves With: nothing Worsens With: none Associated Symptoms: nausea Treatments Prior to Arrival: none - Related Data Previous Rx's Medication Instructions Recorded Amoxicillin 875 mg PO Q12HR #20 tablet 11/10/19 Fluticasone Nasal [place] [Flonase 1 spray EA NOSTRIL DAILY 7 Days #1 11/10/19 Nasal [place]] bottle Loratadine [Claritin] 10 mg PO DAILY #20 tab 11/10/19 Fluconazole [Diflucan] 150 mg PO ONCE #2 tab 11/07/20 Fluticasone Nasal [place] [Flonase 2 spr EA NOSTRIL DAILY #16 gm 11/07/20 Nasal [place]] Ibuprofen [Motrin] 600 mg PO Q8HR PRN #20 tab 11/12/20 metroNIDAZOLE [Flagyl] 500 mg PO TID #21 tab 11/12/20 Amoxicillin 875 mg PO Q12HR #20 tablet 11/11/21 Fluconazole [Diflucan] 150 mg PO ONCE #3 tab 11/11/21 Acetaminophen/Pamabrom [Midol 2 each PO Q6H PRN #30 tablet 11/27/21 [place]] Amoxic-Pot Clav 875-125Mg 1 tab PO Q12HR 7 Days #14 tab 11/27/21 [Augmentin 875-125] Ofloxacin 0.3% Otic Soln [Floxin 10 drops BOTH EARS Q24H 7 Days #10 11/27/21 0.3% Otic Soln] ml Polymyxin B-Trimeth Sulf Ophth 1 drops RIGHT EYE Q4H 7 Days #10 ml 11/27/21 [Polytrim Opthalmic] Dicyclomine [Bentyl] 20 mg PO BID #10 tablet 04/04/22 Benzonatate [Tessalon Perles] 100 mg PO TID PRN #15 capsule 12/15/22 Cetirizine HCl/Pseudoephedrine 1 tab PO Q12H #10 tab 12/15/22 [Zyrtec-D ER 5 mg-120 mg Tablet] Fluticasone Nasal [place] [Flonase 2 spray EA NOSTRIL DAILY #16 gm 12/15/22 Nasal [place]] Allergies Allergy/AdvReac Type Severity Reaction Status Date / Time naproxen [From Naprosyn] Allergy Rash/Hives Verified 12/15/22 09:30 Review of Systems ROS Statement: Those systems with pertinent positive or pertinent negative responses have been documented in the HPI. ROS Other: All systems not noted in ROS Statement are negative. Past Medical History Past Medical History: No Reported History Additional Past Medical History / Comment(s): chronic back pain History of Any Multi-Drug Resistant Organisms: None Reported Past Surgical History: Section Past Psychological History: No Psychological Hx Reported Smoking Status: Current every day smoker Past Alcohol Use History: None Reported Past Drug Use History: None Reported General Exam Limitations: no limitations General appearance: alert, in no apparent distress Head exam: Present: atraumatic, normocephalic, normal inspection Eye exam: Present: normal appearance, PERRL, EOMI. Absent: scleral icterus, conjunctival injection, periorbital swelling ENT exam: Present: normal exam, mucous membranes moist Neck exam: Present: normal inspection. Absent: tenderness, meningismus, lymphadenopathy Respiratory exam: Present: normal lung sounds bilaterally. Absent: respiratory distress, wheezes, rales, rhonchi, stridor Cardiovascular Exam: Present: regular rate, normal rhythm, normal heart sounds. Absent: systolic murmur, diastolic murmur, rubs, gallop, clicks GI/Abdominal exam: Present: soft, normal bowel sounds. Absent: distended, tenderness, guarding, rebound, rigid Extremities exam: Present: normal inspection, full ROM, normal capillary refill. Absent: tenderness, pedal edema, joint swelling, calf tenderness Back exam: Present: normal inspection Neurological exam: Present: alert, oriented X3, CN II-XII intact Psychiatric exam: Present: normal affect, normal mood Skin exam: Present: warm, dry, intact, normal color. Absent: rash Course Vital Signs 06/02/23 06/02/23 03:50 06:29 Temperature 98 F Pulse Rate 82 80 Respiratory 18 16 Rate Blood Pressure 122/88 117/81 O2 Sat by Pulse 100 100 Oximetry - Reevaluation(s) Reevaluation #1: 06/02/23 04:08 Medical records reviewed Reevaluation #2: 06/02/23 06:12 Patient symptoms are improved here in the ER Reevaluation #3: 06/02/23 06:12 Patient informed of results and questions answered Reevaluation #4: Was pt. sent in by a medical professional or institution (, CHRIS, ACCOUNTANT ASSISTANT, urgent care, hospital, or [place] health care facility...) When possible be specific @ -no Did you speak to anyone other than the patient for history (EMS, parent, family, police, friend...)? What history was obtained from this source @ -no Did you review nursing and triage notes (agree or disagree)? Why? @ -agree Are old charts reviewed (outside hosp., previous admission, EMS record, old EKG, old radiological studies, urgent care reports/EKG's, [place] [facility] facility records)? Report findings @ -yes Differential Diagnosis (chest pain, altered mental status, abdominal pain women, abdominal pain men, vaginal bleeding, weakness, fever, dyspnea, syncope, headache, dizziness, GI bleed, back pain, seizure, CVA, palpatations, mental health, musculoskeletal)? @ -prior EKG interpreted by me (3pts min.). @ -no X-rays interpreted by me (1pt min.). @ -no CT interpreted by me (1pt min.). @ -no U/S interpreted by me (1pt. min.). @ -no What testing was considered but not performed or refused? (CT, X-rays, U/S, labs)? Why? @ -none What meds were considered but not given or refused? Why? @ -none Did you discuss the management of the patient with other professionals (professionals i.e. CHRIS Stephens, ACCOUNTANT ASSISTANT, lab, RT, psych nurse, mental health social worker, canoe inspector final, teacher, port patrol officer, registered nurse hh case manager)? Give summary @ -no Was smoking cessation discussed for >3mins.? @ -no Was critical care preformed (if so, how long)? @ -no Were there social determinants of health that impacted care today? How? (Homelessness, low income, unemployed, alcoholism, drug addiction, transportation, low edu. Level, literacy, decrease access to med. care, [facility], rehab)? @ -none Was there de-escalation of care discussed even if they declined (Discuss DNR or withdrawal of care, Hospice)? DNR status @ -no What co-morbidities impacted this encounter? (DM, HTN, Smoking, COPD, CAD, Cancer, CVA, ARF, Chemo, Hep., AIDS, mental health diagnosis, sleep apnea, morbid obesity)? @ -none Was patient admitted / discharged? Hospital course, mention meds given and route, prescriptions, significant lab abnormalities, going to OR and other pertinent info. @ - 37 female to ER for evaluation of headaches, patient does get episodic headaches and her headache is improved here in the ER no fevers no neurological complaints, patient can be discharged home Discharge Undiagnosed new problem with uncertain prognosis? @ -no Drug Therapy requiring intensive monitoring for toxicity (Heparin, Nitro, Insulin, Cardizem)? @ -no Were any procedures done? @ -no Diagnosis/symptom? @ -Headaches Acute, or Chronic, or Acute on Chronic? @ -Acute Uncomplicated (without systemic symptoms) or Complicated (systemic symptoms)? @ -Complicated Side effects of treatment? @ -no Exacerbation, Progression, or Severe Exacerbation? @ -exacerbation Poses a threat to life or bodily function? How? (Chest pain, [place], [place], pneumonia, PE, COPD, DKA, ARF, appy, cholecystitis, CVA, Diverticulitis, Homicidal, Suicidal, threat to staff... and all critical care pts) @ -no Reevaluation #5: Differential Headache: Migraine, tension, cluster, carbon monoxide, central venous thrombosis, pension karma temporal arteritis, acute closure glaucoma, intercranial hemorrhage, mastoiditis, sinusitis, head injury, this is not meant to be an all-inclusive list. Medical Decision Making - Medical Decision Making 37 female to ER for evaluation of headaches, patient does get episodic headaches and her headache is improved here in the ER no fevers no neurological complaints, patient can be discharged home - Lab Data Lab Results 06/02/23 Range/Units 04:27 Influenza Type A (PCR) Not Detected (Not Detectd) Influenza Type B (PCR) Not Detected (Not Detectd) RSV (PCR) Not Detected (Not Detectd) SARS-CoV-2 (PCR) Not Detected (Not Detectd) Disposition Clinical Impression: Headache, Migraine headache Disposition: HOME SELF-CARE Condition: Fair Instructions (If sedation given, give patient instructions): Acute Headache (ED) Is patient prescribed a controlled substance at d/c from ED?: No Referrals: George Arteaga MD [Primary Care Provider] - 1-2 days Time of Disposition: 06:10
[2023-06-02] MEDS: KETOROLAC 15 MG/ML 1 ML VIAL IM STA (06:04)
[2023-06-02] MEDS: diphenhydrAMINE 50 MG CAP PO STA (06:04)
[2023-06-02] MEDS: PROCHLORPERAZINE 10 MG TAB PO STA (06:04)
[2023-06-02] MEDS: IBUPROFEN 600 MG STARTER PACK 4 TAB BTL PO STA (06:29)
[2023-06-02] MEDS: ONDANSETRON 4 MG ODT STARTER PACK 2 TAB BTL PO STA (06:29)
[2023-06-02] MEDS: traMADol 50 MG STARTER PACK 3 TAB BTL PO STA (06:29)
[2023-06-02 06:35] VITALS: BP 117/81; PULSE 80; RESP 16
== END 2023-06-02 06:59 | disposition home or self-care (01) ==
LOC: EC 03:37
DX: G43.909 Migraine, unspecified, not intractable, without status migrainosus (principal); F17.200 Nicotine dependence, unspecified, uncomplicated; Z11.52 Encounter for screening for COVID-19; Z88.6 Allergy status to analgesic agent
CPT/HCPCS: 99284; 96372; 87636; S0183; J1885; S0119

== ENCOUNTER 2024-06-30 08:14 | Emergency (ER) | payer MEDICARE, OTHER ==
[2024-06-30 08:27] VITALS: RESP 20
--- NOTE | 2024-06-30 08:42 | ED ---
Wound/Laceration HPI - General Chief Complaint: Wound/Laceration Stated Complaint: L hand injury Time Seen by Provider: 06/30/24 08:23 Source: patient, RN notes reviewed Mode of arrival: ambulatory Limitations: no limitations - History of Present Illness Initial Comments: 38-year-old female presents emergency department chief complaint of left hand laceration. Patient states that she was washing a knife when it slipped causing a laceration to her left hand her tetanus is up-to-date denies any other associated symptoms no paresthesias. - Related Data Previous Rx's Medication Instructions Recorded Amoxicillin 875 mg PO Q12HR #20 tablet 11/10/19 Fluticasone Nasal [place] [Flonase 1 spray EA NOSTRIL DAILY 7 Days #1 11/10/19 Nasal [place]] bottle Loratadine [Claritin] 10 mg PO DAILY #20 tab 11/10/19 Fluconazole [Diflucan] 150 mg PO ONCE #2 tab 11/07/20 Fluticasone Nasal [place] [Flonase 2 spr EA NOSTRIL DAILY #16 gm 11/07/20 Nasal [place]] Ibuprofen [Motrin] 600 mg PO Q8HR PRN #20 tab 11/12/20 metroNIDAZOLE [Flagyl] 500 mg PO TID #21 tab 11/12/20 Amoxicillin 875 mg PO Q12HR #20 tablet 11/11/21 Fluconazole [Diflucan] 150 mg PO ONCE #3 tab 11/11/21 Acetaminophen/Pamabrom [Midol 2 each PO Q6H PRN #30 tablet 11/27/21 Caplet] Amoxic-Pot Clav 875-125Mg 1 tab PO Q12HR 7 Days #14 tab 11/27/21 [Augmentin 875-125] Ofloxacin 0.3% Otic Soln [Floxin 10 drops BOTH EARS Q24H 7 Days #10 11/27/21 0.3% Otic Soln] ml Polymyxin B-Trimeth Sulf Ophth 1 drops RIGHT EYE Q4H 7 Days #10 ml 11/27/21 [Polytrim Opthalmic] Dicyclomine [Bentyl] 20 mg PO BID #10 tablet 04/04/22 Benzonatate [Tessalon Perles] 100 mg PO TID PRN #15 capsule 12/15/22 Cetirizine HCl/Pseudoephedrine 1 tab PO Q12H #10 tab 12/15/22 [Zyrtec-D ER 5 mg-120 mg Tablet] Fluticasone Nasal [place] [Flonase 2 spray EA NOSTRIL DAILY #16 gm 12/15/22 Nasal [place]] Allergies Allergy/AdvReac Type Severity Reaction Status Date / Time naproxen [From Naprosyn] Allergy Rash/Hives Verified 12/15/22 09:30 Review of Systems ROS Statement: Those systems with pertinent positive or pertinent negative responses have been documented in the HPI. ROS Other: All systems not noted in ROS Statement are negative. Past Medical History Past Medical History: No Reported History Additional Past Medical History / Comment(s): chronic back pain History of Any Multi-Drug Resistant Organisms: None Reported Past Surgical History: Section Past Psychological History: No Psychological Hx Reported Smoking Status: Current every day smoker Past Alcohol Use History: None Reported Past Drug Use History: None Reported General Exam Limitations: no limitations General appearance: alert, in no apparent distress Head exam: Present: atraumatic, normocephalic, normal inspection Respiratory exam: Present: normal lung sounds bilaterally. Absent: respiratory distress, wheezes, rales, rhonchi, stridor Cardiovascular Exam: Present: regular rate, normal rhythm, normal heart sounds. Absent: systolic murmur, diastolic murmur, rubs, gallop, clicks Extremities exam: Present: other (Left hand medial portion proximal to the fifth digit there is 1 cm laceration, full range of motion of all extremities full strength) Course Vital Signs 06/30/24 06/30/24 08:26 09:09 Temperature 99 F 98.0 F Pulse Rate 70 76 Respiratory 20 20 Rate Blood Pressure 170/107 168/89 O2 Sat by Pulse 98 99 Oximetry Procedures - Laceration Laceration #1 Consent Obtained: verbal consent Indication: laceration Site: hand Size (cm): 2 Description: linear Depth: simple, single layer Anesthesia Technique: local infiltration Amount (mls): 2 Pre-repair: wound explored, irrigated extensively, deep structures intact Type of Sutures: nylon Size of Sutures: 4-0 Number of Sutures: 3 Technique: simple, interrupted Patient Tolerated Procedure: well, no complications Medical Decision Making - Medical Decision Making Was pt. sent in by a medical professional or institution (, PA, BAR CATCHER, urgent care, hospital, or snf...) When possible be specific @ -No Did you speak to anyone other than the patient for history (EMS, parent, family, police, friend...)? What history was obtained from this source @ -No Did you review nursing and triage notes (agree or disagree)? Why? @ -I reviewed and agree with nursing and triage notes Were old charts reviewed (outside hosp., previous admission, EMS record, old EKG, old radiological studies, urgent care reports/EKG's, snf records)? Report findings @ -No old charts were reviewed Differential Diagnosis (chest pain, altered mental status, abdominal pain women, abdominal pain men, vaginal bleeding, weakness, fever, dyspnea, syncope, headache, dizziness, GI bleed, back pain, seizure, CVA, palpatations, mental health, musculoskeletal)? @ -Laceration, abrasion EKG interpreted by me (3pts min.). @ -None X-rays interpreted by me (1pt min.). @ -None done CT interpreted by me (1pt min.). @ -None done U/S interpreted by me (1pt. min.). @ -None done What testing was considered but not performed or refused? (CT, X-rays, U/S, labs)? Why? @ -None What meds were considered but not given or refused? Why? @ -None Did you discuss the management of the patient with other professionals (professionals i.e. , PA, BAR CATCHER, lab, RT, psych nurse, dialysis social worker, green feed attendant, teacher, licensed loan officer, classification case manager)? Give summary @ -No Was smoking cessation discussed for >3mins.? @ -No Was critical care preformed (if so, how long)? @ -No Were there social determinants of health that impacted care today? How? (Homelessness, low income, unemployed, alcoholism, drug addiction, transportation, low edu. Level, literacy, decrease access to med. care, fdc, rehab)? @ -No Was there de-escalation of care discussed even if they declined (Discuss DNR or withdrawal of care, Hospice)? DNR status @ -No What co-morbidities impacted this encounter? (DM, HTN, Smoking, COPD, CAD, Cancer, CVA, ARF, Chemo, Hep., AIDS, mental health diagnosis, sleep apnea, morbid obesity)? @ -None Was patient admitted / discharged? Hospital course, mention meds given and route, prescriptions, significant lab abnormalities, going to OR and other pertinent info. @ -Discharged patient has simple laceration repair bacitracin applied tetanus up-to-date. Undiagnosed new problem with uncertain prognosis? @ -No Drug Therapy requiring intensive monitoring for toxicity (Heparin, Nitro, Insulin, Cardizem)? @ -No Were any procedures done? @ -No Diagnosis/symptom? @ -Laceration hand Acute, or Chronic, or Acute on Chronic? @ -Acute Uncomplicated (without systemic symptoms) or Complicated (systemic symptoms)? @ -complicated Side effects of treatment? @ -No Exacerbation, Progression, or Severe Exacerbation? @ -No Poses a threat to life or bodily function? How? (Chest pain, [place], [place], pneumonia, PE, COPD, DKA, ARF, appy, cholecystitis, CVA, Diverticulitis, Homicidal, Suicidal, threat to staff... and all critical care pts) @ -No Disposition Clinical Impression: Laceration of left hand Disposition: HOME SELF-CARE Condition: Stable Instructions (If sedation given, give patient instructions): Care For Your Stitches (ED), Laceration (DC) Additional Instructions: Have sutures removed in 10 days. Please return to the Emergency Department if symptoms worsen or any other concerns. Is patient prescribed a controlled substance at d/c from ED?: No Referrals: George Arteaga MD [Primary Care Provider] - 1-2 days
[2024-06-30] MEDS: LIDOCAINE 1% INJ 10MG/ML (20 ML MDV) SQ ONE (08:44)
[2024-06-30] MEDS: BACITRACIN OINT 1 EACH PACKET TOPICAL ONE (09:02)
[2024-06-30 09:48] VITALS: BP 168/89; PULSE 76; TEMP 98
== END 2024-06-30 09:10 | disposition home or self-care (01) ==
LOC: EC 08:14
DX: S61.217A Laceration without foreign body of left little finger without damage to nail, initial encounter (principal); F17.200 Nicotine dependence, unspecified, uncomplicated; Z88.6 Allergy status to analgesic agent; W26.0XXA Contact with knife, initial encounter
CPT/HCPCS: 12001; 99282; J2003

== ENCOUNTER → 2024-07-25 | Outpatient (CLI) | payer MEDICARE, OTHER ==
[2024-07-25 15:13] LABS: Basophils # (A) 0.04 X 10*3/uL (0.00-0.10); Basophils % (A) 0.3 %; Eosinophils # (A) 0.15 X 10*3/uL (0.04-0.35); Eosinophils % (A) 1.2 %; HCT 33.8 % (37.2-46.3); HGB 10.3 g/dL (12.0-15.0); Lymphocytes # (A) 2.54 X 10*3/uL (0.90-5.00); Lymphocytes % (A) 20.1 %; MCH 23.7 pg (27.0-32.0); MCHC 30.5 g/dL (32.0-37.0); MCV 77.9 FL (80.0-97.0); Mean Platelet Volume 9.2 FL (9.5-12.2); Monocytes # (A) 0.59 X 10*3/uL (0.20-1.00); Monocytes % (A) 4.7 %; NRBC Per 100 WBC 0.02 X 10*3/uL (0.00-0.01); Neutrophils # (A) 9.26 X 10*3/uL (1.80-7.70); Neutrophils % (A) 73.3 %; Platelet Count 468 X 10*3/uL (140-440); RBC 4.34 X 10*6/uL (4.10-5.20); RDW 20.5 % (11.5-14.5); WBC 12.63 X 10*3/uL (4.50-10.00)
[2024-07-25 15:32] LABS: ALT 26 U/L (8-44); AST 33 U/L (13-35); Albumin 4.1 g/dL (3.8-4.9); Albumin/Globulin Ratio 1.52 Ratio (1.60-3.17); Alkaline Phosphatase 77 U/L (41-126); BUN/Creat Ratio 12.12 Ratio (12.00-20.00); Blood Urea Nitrogen 9.7 mg/dL (9.0-27.0); Calcium 9.1 mg/dL (8.7-10.3); Carbon Dioxide 22.1 mmol/L (21.6-31.8); Chloride 104 mmol/L (96-109); Chol/HDL Ratio 3.34 Ratio; Globulin 2.7 g/dL (1.6-3.3); Glucose 95 mg/dL (70-110); LDL Cholesterol,Calculated 90.3 mg/dL (0.0-131.0); Potassium 4.5 mmol/L (3.5-5.5); Sodium 136 mmol/L (135-145); T4, Free (Free Thyroxine) 1.28 ng/dL (0.80-1.80); Total Bilirubin 0.3 mg/dL (0.3-1.2); Total Protein 6.8 g/dL (6.2-8.2)
== END | disposition home or self-care (01) ==
LOC: LABWHC1 10:00
PROVIDERS: ATTEND Psychiatry & Neurology Psychiatry
DX: Z79.899 Other long term (current) drug therapy (principal); F31.2 Bipolar disorder, current episode manic severe with psychotic features
CPT/HCPCS: 36415; 80053; 80061; 83036; 84439; 84443; 85025

== ENCOUNTER 2024-08-29 10:11 | Emergency (ER) | payer MEDICARE, OTHER ==
--- NOTE | 2024-08-29 10:40 | ED ---
Dizziness HPI - General Chief Complaint: Dizziness Stated Complaint: Dizziness,Cough Time Seen by Provider: 08/29/24 10:39 Source: patient, RN notes reviewed Mode of arrival: ambulatory Limitations: no limitations - History of Present Illness Initial Comments: 38-year-old female presented to ER for evaluation of sore throat and dizzy spells. Patient reports for the past 2 weeks she has been having "phlegm" in her throat. She has tried [id number] cough medication and cough drops without relief of her symptoms. Patient reports over the past 2 days she has been having "dizzy spells". She states she feels "woozy" this does improve after sitting down and not moving. She denies current dizziness. She denies any recent head injuries. Patient denies any headache, visual disturbances, chest pain or shortness of breath during these "dizzy spells". Patient denies . - Related Data Previous Rx's Medication Instructions Recorded Meclizine [Antivert] 12.5 mg PO Q8HR PRN #15 tablet 08/29/24 Promethazine/Dextromethorphan 5 ml PO Q6HR PRN #118 ml 08/29/24 [Phenergan Dm 6.25-15 mg/5Ml] Allergies Allergy/AdvReac Type Severity Reaction Status Date / Time naproxen [From Naprosyn] Allergy Rash/Hives Verified 08/29/24 11:37 Review of Systems ROS Statement: Those systems with pertinent positive or pertinent negative responses have been documented in the HPI. ROS Other: All systems not noted in ROS Statement are negative. Past Medical History Past Medical History: No Reported History Additional Past Medical History / Comment(s): chronic back pain History of Any Multi-Drug Resistant Organisms: None Reported Past Surgical History: Section Past Psychological History: No Psychological Hx Reported Smoking Status: Current every day smoker Past Alcohol Use History: None Reported Past Drug Use History: None Reported General Exam Limitations: no limitations General appearance: alert, in no apparent distress Head exam: Present: atraumatic, normocephalic, normal inspection Eye exam: Present: normal appearance, PERRL, EOMI. Absent: scleral icterus, conjunctival injection, periorbital swelling ENT exam: Present: normal exam, normal oropharynx, mucous membranes moist Neck exam: Present: normal inspection. Absent: tenderness, meningismus, lymphadenopathy Respiratory exam: Present: normal lung sounds bilaterally. Absent: respiratory distress, wheezes, rales, rhonchi, stridor Cardiovascular Exam: Present: regular rate, normal rhythm, normal heart sounds. Absent: systolic murmur, diastolic murmur, rubs, gallop, clicks Extremities exam: Present: normal inspection, full ROM, normal capillary refill. Absent: tenderness, pedal edema, joint swelling, calf tenderness Neurological exam: Present: alert, oriented X3, CN II-XII intact, reflexes normal Skin exam: Present: warm, dry, intact, normal color. Absent: rash Course Vital Signs 08/29/24 08/29/24 08/29/24 10:17 12:12 13:37 Temperature 98.3 F 98.4 F Pulse Rate 75 67 58 L Respiratory 20 17 17 Rate Blood Pressure 153/95 152/96 156/97 O2 Sat by Pulse 99 100 99 Oximetry EKG Findings - EKG Comments: EKG Findings:: EKG taken at 10: 45 showing a sinus rhythm. There are no ST segment elevations or depressions. T wave inversions lead III. Ventricular rate 68, MO interval 188, QRS duration 103, QT/QTc 415/433. Medical Decision Making - Medical Decision Making Was pt. sent in by a medical professional or institution (, PA, SOCIAL SCIENCES PROFESSOR, urgent care, hospital, or group home...) When possible be specific @ -No Did you speak to anyone other than the patient for history (EMS, parent, family, police, friend...)? What history was obtained from this source @ -No Did you review nursing and triage notes (agree or disagree)? Why? @ -I reviewed and agree with nursing and triage notes Were old charts reviewed (outside hosp., previous admission, EMS record, old EKG, old radiological studies, urgent care reports/EKG's, group home records)? Report findings @ -No old charts were reviewed Differential Diagnosis (chest pain, altered mental status, abdominal pain women, abdominal pain men, vaginal bleeding, weakness, fever, dyspnea, syncope, headache, dizziness, GI bleed, back pain, seizure, CVA, palpatations, mental health, musculoskeletal)? @ -Differential Dizziness:Benign paroxysmal positional Vertigo, Meniere's disease, otitis media, acoustic neuroma, vertebrobasilar insufficiency, cerebellar stroke, encephalitis, hypovolemic, arrhythmia, coronary artery syndrome, anemia, this is not meant to be an all-inclusive list EKG interpreted by me (3pts min.). @ -As above X-rays interpreted by me (1pt min.). @ -CXR interpreted me negative for focal consolidations or pneumothorax. CT interpreted by me (1pt min.). @ -None done U/S interpreted by me (1pt. min.). @ -None done What testing was considered but not performed or refused? (CT, X-rays, U/S, labs)? Why? @ -CT brain was considered however patient refused. She states her main concern is her "phlegm". She states she has no current dizziness and is requesting discharge upon reevaluation What meds were considered but not given or refused? Why? @ -Florencia anton considered however outpatient pharmacy contacted me stating patients insurance did not cover the prescription and patient is requesting another medication. Did you discuss the management of the patient with other professionals (professionals i.e. , PA, SOCIAL SCIENCES PROFESSOR, lab, RT, psych nurse, railroad worker, lube man, teacher, forward air controller/air officer, director of casework)? Give summary @ -No Was smoking cessation discussed for >3mins.? @ -No Was critical care preformed (if so, how long)? @ -No Were there social determinants of health that impacted care today? How? (Homelessness, low income, unemployed, alcoholism, drug addiction, transportation, low edu. Level, literacy, decrease access to med. care, senior care, rehab)? @ -No Was there de-escalation of care discussed even if they declined (Discuss DNR or withdrawal of care, Hospice)? DNR status @ -No What co-morbidities impacted this encounter? (DM, HTN, Smoking, COPD, CAD, Cancer, CVA, ARF, Chemo, Hep., AIDS, mental health diagnosis, sleep apnea, morbid obesity)? @ -None Was patient admitted / discharged? Hospital course, mention meds given and route, prescriptions, significant lab abnormalities, going to OR and other pertinent info. @ -Discharged. 38 old female presented to ER for evaluation of sore throat and "dizzy spells". On arrival vital signs stable, blood pressure 153/95. Patient no signs of acute distress nontoxic-appearing. Patient is A and O x 3. No acute neurological findings on exam. Laboratory studies obtained remarkable for hemoglobin of 10.8 this appears to be chronic in nature. Patient also reports she is on her menstrual cycle. Troponin undetectable, <0.012. CMP unremarkable. Cephid and strep negative. Urinalysis hemorrhagic with greater than 182 RBCs is likely contaminated from vaginal bleeding due to menses. EKG showing a sinus rhythm no acute ST segment elevations or depressions. Chest x- ray negative. Patient provided with IV fluids with p.o. meclizine. Upon reevaluation, patient extremely eager for discharge. Patient refused CT brain as she states she only presented today for evaluation of sore throat and "phlegm". Patient educated on today's findings. I advised her to follow-up closely with PCP for blood pressure checks and reevaluation. Patient will be discharged in stable condition. Meclizine and Phenergan DM prescribed. Conservative treatment options discussed. Strict return parameters discussed. Patient verbally expressed understanding agreement care plan. Case discussed with ED attending with Dr. Garcia. Undiagnosed new problem with uncertain prognosis? @ -No Drug Therapy requiring intensive monitoring for toxicity (Heparin, Nitro, Insulin, Cardizem)? @ -No Were any procedures done? @ -No Diagnosis/symptom? @ -Dizziness/cough Acute, or Chronic, or Acute on Chronic? @ -Acute Uncomplicated (without systemic symptoms) or Complicated (systemic symptoms)? @ -Uncomplicated Side effects of treatment? @ -No Exacerbation, Progression, or Severe Exacerbation? @ -No Poses a threat to life or bodily function? How? (Chest pain, [place], [place], pneumonia, PE, COPD, DKA, ARF, appy, cholecystitis, CVA, Diverticulitis, Homicidal, Suici keagan, threat to staff... and all critical care pts) @ -No - Lab Data Result diagrams: 08/29/24 11:00 08/29/24 11:00 Lab Results 08/29/24 08/29/24 08/29/24 Range/Units 11:00 11:00 11:00 WBC 8.55 (4.50-10.00) 10*3/uL RBC 4.38 (4.10-5.20) 10*6/uL Hgb 10.8 L (12.0-15.0) g/dL Hct 33.5 L (37.2-46.3) % MCV 76.5 L (80.0-97.0) fL MCH 24.7 L (27.0-32.0) pg MCHC 32.2 (32.0-37.0) g/dL Plt Count 429 (140-440) 10*3/uL MPV 8.9 L (9.5-12.2) fL Immature Gran % (Auto) 0.5 % Neutrophils % 73.4 % Lymphocytes % 20.8 % Monocytes % 4.1 % Eosinophils % 0.7 % Basophils % 0.5 % Immature Gran # 0.04 (0.00-0.04) 10*3/uL Neutrophils # 6.28 (1.80-7.70) 10*3/uL Lymphocytes # 1.78 (0.90-5.00) 10*3/uL Monocytes # 0.35 (0.20-1.00) 10*3/uL Eosinophils # 0.06 (0.04-0.35) 10*3/uL Basophils # 0.04 (0.00-0.10) 10*3/uL PT 10.5 (10.0-12.5) sec INR 0.9 (<1.2) APTT 22.7 (22.0-30.0) sec Sodium 139 (137-145) mmol/L Potassium 4.4 (3.5-5.1) mmol/L Chloride 106 (98-107) mmol/L Carbon Dioxide 23 (22-30) mmol/L Anion Gap 10 mmol/L BUN 9 (7-17) mg/dL Creatinine 0.68 (0.52-1.04) mg/dL Est GFR (CKD-EPI)AfAm >90 (>60 ml/min/1.73 sqM) Est GFR (CKD-EPI)NonAf >90 (>60 ml/min/1.73 sqM) Glucose 89 (74-99) mg/dL Calcium 9.5 (8.4-10.2) mg/dL Total Bilirubin 0.3 (0.2-1.3) mg/dL AST 29 (14-36) U/L ALT 24 (4-34) U/L Alkaline Phosphatase 87 (38-126) U/L Troponin I (0.000-0.034) ng/mL Total Protein 7.3 (6.3-8.2) g/dL Albumin 4.3 (3.5-5.0) g/dL Urine Color Urine Appearance (Clear) Urine pH (5.0-8.0) Ur Specific [place] (1.001-1.035) Urine Protein (Negative) Urine Glucose (UA) (Negative) Urine Ketones (Negative) Urine Blood (Negative) Urine Nitrite (Negative) Urine Bilirubin (Negative) Urine Urobilinogen (<2.0) mg/dL Ur Leukocyte Esterase (Negative) Urine RBC (0-5) /hpf Urine WBC (0-5) /hpf Ur Squamous Epith Cells (0-4) /hpf Urine Mucus (None) /hpf Urine HCG, Qual (Not Detectd) Influenza Type A (PCR) (Not Detectd) Influenza Type B (PCR) (Not Detectd) RSV (PCR) (Not Detectd) SARS-CoV-2 (PCR) (Not Detectd) Group A Strep (PCR) (Not Detectd) 08/29/24 08/29/24 08/29/24 Range/Units 11:00 11:00 11:00 WBC (4.50-10.00) 10*3/uL RBC (4.10-5.20) 10*6/uL Hgb (12.0-15.0) g/dL Hct (37.2-46.3) % MCV (80.0-97.0) fL MCH (27.0-32.0) pg MCHC (32.0-37.0) g/dL Plt Count (140-440) 10*3/uL MPV (9.5-12.2) fL Immature Gran % (Auto) % Neutrophils % % Lymphocytes % % Monocytes % % Eosinophils % % Basophils % % Immature Gran # (0.00-0.04) 10*3/uL Neutrophils # (1.80-7.70) 10*3/uL Lymphocytes # (0.90-5.00) 10*3/uL Monocytes # (0.20-1.00) 10*3/uL Eosinophils # (0.04-0.35) 10*3/uL Basophils # (0.00-0.10) 10*3/uL PT (10.0-12.5) sec INR (<1.2) APTT (22.0-30.0) sec Sodium (137-145) mmol/L Potassium (3.5-5.1) mmol/L Chloride (98-107) mmol/L Carbon Dioxide (22-30) mmol/L Anion Gap mmol/L BUN (7-17) mg/dL Creatinine (0.52-1.04) mg/dL Est GFR (CKD-EPI)AfAm (>60 ml/min/1.73 sqM) Est GFR (CKD-EPI)NonAf (>60 ml/min/1.73 sqM) Glucose (74-99) mg/dL Calcium (8.4-10.2) mg/dL Total Bilirubin (0.2-1.3) mg/dL AST (14-36) U/L ALT (4-34) U/L Alkaline Phosphatase (38-126) U/L Troponin I <0.012 (0.000-0.034) ng/mL Total Protein (6.3-8.2) g/dL Albumin (3.5-5.0) g/dL Urine Color Urine Appearance (Clear) Urine pH (5.0-8.0) Ur Specific [place] (1.001-1.035) Urine Protein (Negative) Urine Glucose (UA) (Negative) Urine Ketones (Negative) Urine Blood (Negative) Urine Nitrite (Negative) Urine Bilirubin (Negative) Urine Urobilinogen (<2.0) mg/dL Ur Leukocyte Esterase (Negative) Urine RBC (0-5) /hpf Urine WBC (0-5) /hpf Ur Squamous Epith Cells (0-4) /hpf Urine Mucus (None) /hpf Urine HCG, Qual (Not Detectd) Influenza Type A (PCR) Not Detected (Not Detectd) Influenza Type B (PCR) Not Detected (Not Detectd) RSV (PCR) Not Detected (Not Detectd) SARS-CoV-2 (PCR) Not Detected (Not Detectd) Group A Strep (PCR) NOT DETECTED (Not Detectd) 08/29/24 08/29/24 Range/Units 11:14 11:14 WBC (4.50-10.00) 10*3/uL RBC (4.10-5.20) 10*6/uL Hgb (12.0-15.0) g/dL Hct (37.2-46.3) % MCV (80.0-97.0) fL MCH (27.0-32.0) pg MCHC (32.0-37.0) g/dL Plt Count (140-440) 10*3/uL MPV (9.5-12.2) fL Immature Gran % (Auto) % Neutrophils % % Lymphocytes % % Monocytes % % Eosinophils % % Basophils % % Immature Gran # (0.00-0.04) 10*3/uL Neutrophils # (1.80-7.70) 10*3/uL Lymphocytes # (0.90-5.00) 10*3/uL Monocytes # (0.20-1.00) 10*3/uL Eosinophils # (0.04-0.35) 10*3/uL Basophils # (0.00-0.10) 10*3/uL PT (10.0-12.5) sec INR (<1.2) APTT (22.0-30.0) sec Sodium (137-145) mmol/L Potassium (3.5-5.1) mmol/L Chloride (98-107) mmol/L Carbon Dioxide (22-30) mmol/L Anion Gap mmol/L BUN (7-17) mg/dL Creatinine (0.52-1.04) mg/dL Est GFR (CKD-EPI)AfAm (>60 ml/min/1.73 sqM) Est GFR (CKD-EPI)NonAf (>60 ml/min/1.73 sqM) Glucose (74-99) mg/dL Calcium (8.4-10.2) mg/dL Total Bilirubin (0.2-1.3) mg/dL AST (14-36) U/L ALT (4-34) U/L Alkaline Phosphatase (38-126) U/L Troponin I (0.000-0.034) ng/mL Total Protein (6.3-8.2) g/dL Albumin (3.5-5.0) g/dL Urine Color Light Red Urine Appearance Clear (Clear) Urine pH 5.5 (5.0-8.0) Ur Specific [place] 1.021 (1.001-1.035) Urine Protein Trace H (Negative) Urine Glucose (UA) Negative (Negative) Urine Ketones Negative (Negative) Urine Blood Large H (Negative) Urine Nitrite Negative (Negative) Urine Bilirubin Negative (Negative) Urine Urobilinogen <2.0 (<2.0) mg/dL Ur Leukocyte Esterase Negative (Negative) Urine RBC >182 H (0-5) /hpf Urine WBC 5 (0-5) /hpf Ur Squamous Epith Cells 1 (0-4) /hpf Urine Mucus Occasional H (None) /hpf Urine HCG, Qual Not Detected (Not Detectd) Influenza Type A (PCR) (Not Detectd) Influenza Type B (PCR) (Not Detectd) RSV (PCR) (Not Detectd) SARS-CoV-2 (PCR) (Not Detectd) Group A Strep (PCR) (Not Detectd) - Radiology Data Radiology results: report reviewed, image reviewed Disposition Clinical Impression: Cough, Dizziness Disposition: HOME SELF-CARE Condition: Stable Instructions (If sedation given, give patient instructions): Dizziness (ED) Additional Instructions: Follow-up closely with PCP. Return to the ER for any new or worsening concerns. Prescriptions: Meclizine [Antivert] 12.5 mg PO Q8HR PRN #15 tablet PRN Reason: Vertigo Promethazine/Dextromethorphan [Phenergan Dm 6.25-15 mg/5Ml] 5 ml PO Q6HR PRN #118 ml PRN Reason: Cough Is patient prescribed a controlled substance at d/c from ED?: No Referrals: George Arteaga MD [Primary Care Provider] - 1-2 days Time of Disposition: 13:32
[2024-08-29] MEDS: MECLIZINE 12.5 MG TAB PO STA (11:11)
[2024-08-29] MEDS: SODIUM CHLORIDE 0.9% 1,000 ML IV STA (11:11)
[2024-08-29 11:31] LABS: Basophils # (A) 0.04 10*3/uL (0.00-0.10); Basophils % (A) 0.5 %; Eosinophils # (A) 0.06 10*3/uL (0.04-0.35); Eosinophils % (A) 0.7 %; HCT 33.5 % (37.2-46.3); HGB 10.8 g/dL (12.0-15.0); Lymphocytes # (A) 1.78 10*3/uL (0.90-5.00); Lymphocytes % (A) 20.8 %; MCH 24.7 pg (27.0-32.0); MCHC 32.2 g/dL (32.0-37.0); MCV 76.5 fL (80.0-97.0); Monocytes # (A) 0.35 10*3/uL (0.20-1.00); Monocytes % (A) 4.1 %; Neutrophils # (A) 6.28 10*3/uL (1.80-7.70); Neutrophils % (A) 73.4 %; Platelet Count 429 10*3/uL (140-440); RBC 4.38 10*6/uL (4.10-5.20); RDW 20.3 % (11.5-14.5); WBC 8.55 10*3/uL (4.50-10.00)
[2024-08-29 11:33] LABS: Bilirubin,Urine Negative (Negative); Blood,Urine Large (Negative); Color,Urine Light Red; Glucose,Urine (UA) Negative (Negative); Ketones,Urine Negative (Negative); Leukocyte Esterase,Urine Negative (Negative); Mucus,Urine Occasional /hpf; Nitrite,Urine Negative (Negative); PH, Urine 5.5 (5.0-8.0); Protein,Urine Trace (Negative); RBC,Urine >182 /hpf (0-5); Specific Gravity,Urine 1.021 (1.001-1.035); Squamous Epithelial Cell,Urine 1 /hpf (0-4); Urobilinogen,Urine <2.0 mg/dL (<2.0); WBC,Urine 5 /hpf (0-5)
--- NOTE | 2024-08-29 11:44 | XR ---
EXAMINATION TYPE: XR chest 2V DATE OF EXAM: 08/29/2024 11:23 AM COMPARISON: 12/15/2022 CLINICAL INDICATION: Female, 38 years old with history of cough, dizziness, , TECHNIQUE: PA and lateral views FINDINGS: The cardiomediastinal silhouette, aorta, and pulmonary vasculature are within normal limits. Lungs an d pleural spaces are clear. IMPRESSION: No acute cardiopulmonary process. [facility], , 08/29/2024 11:42 AM
[2024-08-29 11:45] LABS: ALT 24 U/L (4-34); AST 29 U/L (14-36); African American GFR (CKD) >90 (>60 ml/min/1.73 sqM); Albumin 4.3 g/dL (3.5-5.0); Alkaline Phosphatase 87 U/L (38-126); Anion Gap 10 mmol/L; Blood Urea Nitrogen 9 mg/dL (7-17); Calcium 9.5 mg/dL (8.4-10.2); Carbon Dioxide 23 mmol/L (22-30); Chloride 106 mmol/L (98-107); Glucose 89 mg/dL (74-99); INR 0.9 (<1.2); Non-African American GFR(CKD) >90 (>60 ml/min/1.73 sqM); Partial Thromboplastin Time 22.7 sec (22.0-30.0); Potassium 4.4 mmol/L (3.5-5.1); Prothrombin Time 10.5 sec (10.0-12.5); Sodium 139 mmol/L (137-145); Total Protein 7.3 g/dL (6.3-8.2)
[2024-08-29 12:04] LABS: RSV Not Detected (Not Detectd)
[2024-08-29 12:15] VITALS: RESP 17
[2024-08-29 13:40] VITALS: BP 156/97; PULSE 58; TEMP 98.4
== END 2024-08-29 13:40 | disposition home or self-care (01) ==
LOC: EC 10:11
DX: R05.9 Cough, unspecified (principal); R42 Dizziness and giddiness; F17.200 Nicotine dependence, unspecified, uncomplicated; Z88.6 Allergy status to analgesic agent
CPT/HCPCS: 36415; 71046; 80053; 81001; 81025; 84484; 85025; 85610; 85730; 87636; 87651; 93005; 96360; 99284